=== PATIENT | female | born 1940 | race Caucasian/White ===

== ENCOUNTER 2021-05-14 12:03 | Inpatient (IN) | payer OTHER, MEDICAID ==
[~2021-05-14] VITALS: Ht 154.9 cm; Wt 52.9 kg
[~2021-05-14 12:03] MED LIST: ALPR0.5T10 PO; DIGO0.1262 PO; HYDR-4833 PO; METO25TA5 PO; PAXIL PO; PHEN100C PO; TEMA30CA5 OR
[2021-05-14] MEDS ORDERED: methylPREDNISolone SOD SUCC 125 MG/2 ML VL IV ONE (12:30)
[2021-05-14] MEDS ORDERED: dilTIAZem 25 MG/5 ML VIAL IV ONE (15:00)
[2021-05-14] MEDS ORDERED: NITROGLYCERIN 0.4 MG SL TAB SL PRN (17:30)
[2021-05-14] MEDS ORDERED: MORPHINE SULFATE INJECTION 2 MG/ML SYRG IV PRN (17:30)
[2021-05-14 17:42] LABS: Basophils # (auto) 0 10 ^3/uL (0-0.2); Basophils % (auto) 0.1 % (0.0-2.0); Eosinophils # (auto) 0 10 ^3/uL (0-0.8); Hemoglobin 12.4 g/dL (12.2-16.2); Lymphocytes # (auto) 0.5 10 ^3/uL (0.4-5.4); Lymphocytes % (auto) 6.2 % (10.0-50.0); Mean Corpuscular Hemoglobin 27.4 pg (28.0-32.0); Mean Corpuscular Hgb Conc. 32.5 g/dL (32.0-36.0); Mean Corpuscular Volume 84.1 fL (80.0-100.0); Monocytes # (auto) 0.3 10 ^3/uL (0-1.3); Monocytes % (auto) 3.9 % (0.0-12.0); Neutrophils # (auto) 7.7 10 ^3/uL (1.6-8.6); Neutrophils % (auto) 89.8 % (37.0-80.0); Nucleated Red Blood Cells % 0.1 %; Red Blood Cells 4.52 10^6/uL (4.0-5.20); Red Cell Distribution Width 14.8 % (11.8-14.3); White Blood Cell 8.6 10^3/uL (4.4-10.8)
[2021-05-14 17:59] LABS: Albumin 3.2 g/dL (3.4-5.0); Potassium 3.6 mmol/L (3.5-5.1)
[2021-05-14 18:08] LABS: BUN/Creatinine Ratio 15.2; Bilirubin, Total 0.2 mg/dL (0.2-1.0); CRP High Sensitivity 6.07 mg/dL (< 0.3); Total Protein 6.4 g/dL (6.4-8.2)
[2021-05-14] MEDS ORDERED: AMIODARONE HCL 200 MG TAB PO ONE (18:30)
[2021-05-14] MEDS ORDERED: METOPROLOL TARTRATE 1MG/1ML-5ML VIAL IV ONE (18:30)
[2021-05-14] MEDS ORDERED: ALBUMIN 25% 100 ML IV ONE ×2 (18:30→19:15)
[2021-05-14] MEDS ORDERED: AZITHROMYCIN 500MG/ 250ML 250 ML IV ONE (22:45)
[2021-05-14] MEDS ORDERED: cefTRIAXone 1GM/50ML D5W 50 ML IV ONE (22:45)
[2021-05-14] MEDS: AZITHROMYCIN 500MG/ 250ML 250 ML IV SCH (23:27)
[2021-05-15] MEDS ORDERED: METOPROLOL TARTRATE 1MG/1ML-5ML VIAL IV PRN
[2021-05-15 00:30] VITALS: BP 107/57
[2021-05-15] MEDS: ALBUMIN 25% 100 ML IV SCH ×3 (00:35→13:56)
[2021-05-15 05:00] VITALS: BP 137/77
[2021-05-15] MEDS ORDERED: TEMA30CA PO (05:32)
[2021-05-15] MEDS ORDERED: PHE100C PO (05:32)
[2021-05-15] MEDS ORDERED: PANT40T PO (05:32)
[2021-05-15] MEDS ORDERED: ACET-1158 PO (05:32)
[2021-05-15] MEDS ORDERED: PAR20T PO (05:32)
[2021-05-15 06:00] LABS: Potassium 3.9 mmol/L (3.5-5.1)
[2021-05-15 06:16] LABS: Basophils # (auto) 0 10 ^3/uL (0-0.2); Basophils % (auto) 0.2 % (0.0-2.0); Eosinophils # (auto) 0 10 ^3/uL (0-0.8); Eosinophils % (auto) 0.1 % (0.0-7.0); Hematocrit 33.4 % (36.0-46.0); Hemoglobin 10.8 g/dL (12.2-16.2); Lymphocytes % (auto) 29.2 % (10.0-50.0); Mean Corpuscular Hemoglobin 26.9 pg (28.0-32.0); Mean Corpuscular Hgb Conc. 32.3 g/dL (32.0-36.0); Mean Corpuscular Volume 83.4 fL (80.0-100.0); Monocytes # (auto) 0.8 10 ^3/uL (0-1.3); Monocytes % (auto) 11.3 % (0.0-12.0); Neutrophils % (auto) 59.2 % (37.0-80.0); Nucleated Red Blood Cells % 0.1 %; Red Blood Cells 4.01 10^6/uL (4.0-5.20); Red Cell Distribution Width 14.3 % (11.8-14.3); White Blood Cell 6.8 10^3/uL (4.4-10.8)
[2021-05-15 06:26] LABS: Albumin 3.7 g/dL (3.4-5.0); BUN/Creatinine Ratio 20.3; Bilirubin, Total 0.2 mg/dL (0.2-1.0); Calcium 9.4 mg/dL (8.5-10.1); Magnesium 1.9 mg/dL (1.6-2.6); Phosphorus 2.5 mg/dL (2.5-4.90); Total Protein 6.4 g/dL (6.4-8.2)
[2021-05-15] MEDS: BUDESONIDE (INHALATION) 180 MCG IH IN SCH (07:25)
[2021-05-15] MEDS: cefTRIAXone 1GM/50ML D5W 50 ML IV SCH (08:52)
[2021-05-15 09:00] VITALS: BP 103/54
[2021-05-15] MEDS ORDERED: DIGOXIN 0.125 MG TAB PO ONE (12:00)
[2021-05-15] MEDS ORDERED: LORazepam 2MG/ML-1ML VIAL IV PRN (12:00)
[2021-05-15] MEDS ORDERED: FAMOTIDINE (10MG/ML) 2ML VL IV ONE (12:00)
[2021-05-15] MEDS ORDERED: ALPRAZolam 0.5 MG TAB PO PRN (12:00)
[2021-05-15] MEDS ORDERED: ALUM & MAG HYDROX-SIMETH LIQ(MAALOX) 30 ML PO PRN (12:30)
[2021-05-15] MEDS ORDERED: ACETAMINOPHEN 325 MG TAB PO PRN (12:30)
[2021-05-15] MEDS ORDERED: IPRATROPIUM BROM 0.5 MG/2.5ML INH SOL NEB ONE (12:30)
[2021-05-15] MEDS ORDERED: BUDESONIDE (INHALATION) 0.5 MG/2 ML NEB NEB ONE (12:30)
[2021-05-15] MEDS ORDERED: MORPHINE SULFATE INJECTION 2 MG/ML SYRG IV PRN ×2 (12:30)
[2021-05-15] MEDS ORDERED: PROMETHAZINE-DM 5 ML ORAL SYRUP PO PRN (12:30)
[2021-05-15] MEDS ORDERED: NITROGLYCERIN 0.4 MG SL TAB SL PRN (12:30)
[2021-05-15] MEDS ORDERED: DOCUSATE SOD 100 MG CAP PO PRN (12:30)
[2021-05-15] MEDS ORDERED: METOCLOPRAMIDE HCL 5MG/ml INJ 2ml VIAL IV PRN (12:30)
[2021-05-15 13:00] VITALS: BP 100/76
[2021-05-15 13:03] LABS: Partial Thromboplastin Time 31.8 sec (23.6-33.0)
[2021-05-15] MEDS ORDERED: IPRATROPIUM BROM 0.5 MG/2.5ML INH SOL NEB SCH (13:27)
[2021-05-15] MEDS: APIXABAN 2.5 MG TAB PO SCH ×2 (13:55→21:05)
[2021-05-15] MEDS: methylPREDNISolone SOD SUCC 40 MG/ML VL IV SCH ×2 (13:55→21:04)
[2021-05-15] MEDS ORDERED: ACETYLCYSTEINE 10 %(100MG/ML) SOL 4ML NEB SCH (14:00)
[2021-05-15 17:00] VITALS: BP 141/90
[2021-05-15] MEDS: HYDROcodone-ACET 5/325MG TAB PO PRN (17:31)
[2021-05-15] MEDS: TEMAZEPAM 15 MG CAP PO PRN (21:03)
[2021-05-15] MEDS: PHENYTOIN SODIUM 100 MG CAP PO SCH (21:04)
[2021-05-15] MEDS: ATORVASTATIN 20 MG TAB PO SCH (21:05)
[2021-05-15 22:00] VITALS: BP 93/55
[2021-05-15] MEDS ORDERED: BUDESONIDE (INHALATION) 0.5 MG/2 ML NEB NEB SCH (22:00)
[2021-05-16 05:00] VITALS: BP 135/81
[2021-05-16] MEDS: methylPREDNISolone SOD SUCC 40 MG/ML VL IV SCH ×3 (05:38→21:21)
[2021-05-16 05:51] LABS: Basophils # (auto) 0 10 ^3/uL (0-0.2); Basophils % (auto) 0.1 % (0.0-2.0); Eosinophils # (auto) 0 10 ^3/uL (0-0.8); Hematocrit 40.6 % (36.0-46.0); Hemoglobin 12.9 g/dL (12.2-16.2); Lymphocytes # (auto) 1.1 10 ^3/uL (0.4-5.4); Lymphocytes % (auto) 13.9 % (10.0-50.0); Mean Corpuscular Hgb Conc. 31.9 g/dL (32.0-36.0); Mean Corpuscular Volume 84.5 fL (80.0-100.0); Monocytes # (auto) 0.5 10 ^3/uL (0-1.3); Monocytes % (auto) 6.4 % (0.0-12.0); Neutrophils # (auto) 6.3 10 ^3/uL (1.6-8.6); Neutrophils % (auto) 79.6 % (37.0-80.0); Red Cell Distribution Width 15.1 % (11.8-14.3); White Blood Cell 7.9 10^3/uL (4.4-10.8)
[2021-05-16 06:03] LABS: Potassium 4.2 mmol/L (3.5-5.1)
[2021-05-16 06:29] LABS: Albumin 4.3 g/dL (3.4-5.0); BUN/Creatinine Ratio 21.4; Bilirubin, Total 0.4 mg/dL (0.2-1.0); Calcium 10.4 mg/dL (8.5-10.1); Phosphorus 3.1 mg/dL (2.5-4.90); Total Protein 7.2 g/dL (6.4-8.2)
[2021-05-16 06:30] LABS: Partial Thromboplastin Time 35.5 sec (23.6-33.0)
[2021-05-16 09:00] VITALS: BP 96/50
[2021-05-16] MEDS: BUDESONIDE (INHALATION) 180 MCG IH IN SCH ×3 (10:00→22:00)
[2021-05-16] MEDS: METOPROLOL SUCCINATE XL 50 MG TAB PO SCH (10:00)
[2021-05-16] MEDS: cefTRIAXone 1GM/50ML D5W 50 ML IV SCH (10:33)
[2021-05-16] MEDS: PANTOPRAZOLE 40 MG/10 ML VIAL INJ IV SCH (10:34)
[2021-05-16] MEDS: FAMOTIDINE (10MG/ML) 2ML VL IV SCH (10:34)
[2021-05-16] MEDS: APIXABAN 2.5 MG TAB PO SCH ×2 (10:34→21:21)
[2021-05-16] MEDS: PHENYTOIN SODIUM 100 MG CAP PO SCH ×2 (10:34→21:21)
[2021-05-16] MEDS: DIGOXIN 0.125 MG TAB PO SCH (10:35)
[2021-05-16] MEDS: AZITHROMYCIN 500MG/ 250ML 250 ML IV SCH (11:39)
[2021-05-16 13:00] VITALS: BP 98/60
[2021-05-16 17:00] VITALS: BP 91/60
[2021-05-16] MEDS: FUROSEMIDE 20 MG/2 ML VIAL IV SCH (17:40)
[2021-05-16] MEDS: ALBUTEROL SULF HFA 90MCG INH 200DOSE IN PRN (19:14)
[2021-05-16] MEDS: POTASSIUM CHL 20 Meq TABLET PO SCH (21:22)
[2021-05-16] MEDS: ATORVASTATIN 20 MG TAB PO SCH (21:22)
[2021-05-16] MEDS: TEMAZEPAM 15 MG CAP PO PRN (21:27)
[2021-05-16 22:00] VITALS: BP 102/50
[2021-05-17 05:00] VITALS: BP 91/58
[2021-05-17] MEDS: FUROSEMIDE 20 MG/2 ML VIAL IV SCH (05:21)
[2021-05-17] MEDS: methylPREDNISolone SOD SUCC 40 MG/ML VL IV SCH ×2 (05:22→21:48)
[2021-05-17 05:45] LABS: Basophils # (auto) 0 10 ^3/uL (0-0.2); Basophils % (auto) 0.3 % (0.0-2.0); Eosinophils # (auto) 0 10 ^3/uL (0-0.8); Eosinophils % (auto) 0.1 % (0.0-7.0); Hematocrit 37.4 % (36.0-46.0); Hemoglobin 11.8 g/dL (12.2-16.2); Lymphocytes # (auto) 1.2 10 ^3/uL (0.4-5.4); Lymphocytes % (auto) 14.4 % (10.0-50.0); Mean Corpuscular Hemoglobin 26.6 pg (28.0-32.0); Mean Corpuscular Hgb Conc. 31.6 g/dL (32.0-36.0); Mean Corpuscular Volume 84.2 fL (80.0-100.0); Monocytes # (auto) 0.5 10 ^3/uL (0-1.3); Monocytes % (auto) 6.5 % (0.0-12.0); Neutrophils # (auto) 6.6 10 ^3/uL (1.6-8.6); Neutrophils % (auto) 78.7 % (37.0-80.0); Nucleated Red Blood Cells % 0.1 %; Red Blood Cells 4.44 10^6/uL (4.0-5.20); Red Cell Distribution Width 14.5 % (11.8-14.3); White Blood Cell 8.4 10^3/uL (4.4-10.8)
[2021-05-17 06:04] LABS: Alanine Aminotransferase 36 U/L (13-56); Albumin 3.2 g/dL (3.4-5.0); Anion Gap 4 (5-15); Aspartate Aminotransferase 40 U/L (15-37); BUN/Creatinine Ratio 29.9; Blood Urea Nitrogen 20 mg/dL (7-18); Calcium 10.4 mg/dL (8.5-10.1); Carbon Dioxide 28 mmol/L (21-32); Chloride 109 mmol/L (98-107); GFR African American 109 mL/min; GFR Non-African American 90 mL/min; Glucose 126 mg/dL (74-106); Magnesium 2.3 mg/dL (1.6-2.6); Potassium 4.7 mmol/L (3.5-5.1); Sodium 141 mmol/L (136-145)
[2021-05-17 06:06] LABS: Alkaline Phosphatase 57 U/L (45-117); Bilirubin, Total 0.3 mg/dL (0.2-1.0); Phosphorus 2.1 mg/dL (2.5-4.90); Total Protein 6.2 g/dL (6.4-8.2)
[2021-05-17] MEDS: cefTRIAXone 1GM/50ML D5W 50 ML IV SCH (08:45)
[2021-05-17] MEDS: PANTOPRAZOLE 40 MG/10 ML VIAL INJ IV SCH (08:46)
[2021-05-17] MEDS: FAMOTIDINE (10MG/ML) 2ML VL IV SCH (08:46)
[2021-05-17] MEDS: AZITHROMYCIN 500MG/ 250ML 250 ML IV SCH (08:47)
[2021-05-17] MEDS: PHENYTOIN SODIUM 100 MG CAP PO SCH ×2 (08:47→21:49)
[2021-05-17] MEDS: APIXABAN 2.5 MG TAB PO SCH ×2 (08:48→21:49)
[2021-05-17] MEDS: POTASSIUM CHL 20 Meq TABLET PO SCH (08:48)
[2021-05-17 09:00] VITALS: BP 102/65
[2021-05-17] MEDS: DIGOXIN 0.125 MG TAB PO SCH (09:31)
[2021-05-17] MEDS: METOPROLOL SUCCINATE XL 50 MG TAB PO SCH (09:32)
[2021-05-17] MEDS: BUDESONIDE (INHALATION) 180 MCG IH IN SCH ×2 (10:15→17:48)
[2021-05-17] MEDS: ALBUTEROL SULF HFA 90MCG INH 200DOSE IN PRN ×2 (10:15→17:48)
[2021-05-17 12:30] LABS: INR 1.01 (0.9-1.15); Partial Thromboplastin Time 30.6 sec (23.6-33.0)
[2021-05-17 13:00] VITALS: BP 133/79
[2021-05-17] MEDS ORDERED: ZINC SULFATE 220mg CAP or TAB PO ONE (13:25)
[2021-05-17] MEDS ORDERED: CHOLECALCIFEROL (VITD3) 2,000 UNIT CAP/TAB PO ONE (13:25)
[2021-05-17] MEDS ORDERED: ASCORBIC ACID 1,000 MG TAB PO ONE (13:25)
[2021-05-17] MEDS ORDERED: IVERMECTIN 3 MG TAB PO ONE (13:25)
[2021-05-17] MEDS: HYDROcodone-ACET 5/325MG TAB PO PRN ×2 (13:52→17:33)
[2021-05-17 17:00] VITALS: BP 107/58
[2021-05-17] MEDS: ATORVASTATIN 20 MG TAB PO SCH (21:49)
[2021-05-17 22:00] VITALS: BP 102/65
[2021-05-17] MEDS: TEMAZEPAM 15 MG CAP PO PRN (23:25)
[2021-05-18 05:00] VITALS: BP 112/75
[2021-05-18] MEDS: BUDESONIDE (INHALATION) 180 MCG IH IN SCH ×2 (06:09→20:28)
[2021-05-18] MEDS: ALBUTEROL SULF HFA 90MCG INH 200DOSE IN PRN ×2 (06:09→20:28)
[2021-05-18 06:48] LABS: Albumin 3.4 g/dL (3.4-5.0); Anion Gap 5 (5-15); Blood Urea Nitrogen 22 mg/dL (7-18); Carbon Dioxide 25 mmol/L (21-32); Chloride 110 mmol/L (98-107); Glucose 123 mg/dL (74-106); Magnesium 2.1 mg/dL (1.6-2.6); Potassium 4.9 mmol/L (3.5-5.1); Sodium 140 mmol/L (136-145)
[2021-05-18 06:51] LABS: Alanine Aminotransferase 57 U/L (13-56); Alkaline Phosphatase 63 U/L (45-117); Aspartate Aminotransferase 48 U/L (15-37); Bilirubin, Direct < 0.1 mg/dL (0-0.2); Bilirubin, Total 0.2 mg/dL (0.2-1.0); Calcium 10.1 mg/dL (8.5-10.1); Cholesterol 156 mg/dL (< 200); GFR African American 121 mL/min; GFR Non-African American 100 mL/min; HDL Cholesterol 64 mg/dL (40-59); LDL Cholesterol 63 mg/dL (< 100); Phosphorus 2.8 mg/dL (2.5-4.90); Triglycerides 78 mg/dL (< 150)
[2021-05-18 07:14] LABS: Thyroid Stimulating Hormone 0.38 uIU/mL (0.358-3.74)
[2021-05-18 08:39] LABS: CRP High Sensitivity 3.19 mg/dL (< 0.3)
[2021-05-18 08:56] LABS: BUN/Creatinine Ratio 36.1
[2021-05-18 09:00] VITALS: BP 93/57
[2021-05-18] MEDS: PANTOPRAZOLE 40 MG/10 ML VIAL INJ IV SCH (10:35)
[2021-05-18] MEDS: cefTRIAXone 1GM/50ML D5W 50 ML IV SCH (10:35)
[2021-05-18] MEDS: APIXABAN 2.5 MG TAB PO SCH ×2 (10:36→22:34)
[2021-05-18] MEDS: PHENYTOIN SODIUM 100 MG CAP PO SCH ×2 (10:36→22:34)
[2021-05-18] MEDS: ZINC SULFATE 220mg CAP or TAB PO SCH (10:36)
[2021-05-18] MEDS: methylPREDNISolone SOD SUCC 40 MG/ML VL IV SCH (10:36)
[2021-05-18] MEDS: ASCORBIC ACID 1,000 MG TAB PO SCH (10:37)
[2021-05-18] MEDS: CHOLECALCIFEROL (VITD3) 2,000 UNIT CAP/TAB PO SCH (10:37)
[2021-05-18] MEDS: IVERMECTIN 3 MG TAB PO SCH (10:37)
[2021-05-18] MEDS: AZITHROMYCIN 250 MG TAB PO SCH (10:38)
[2021-05-18] MEDS: METOPROLOL SUCCINATE XL 50 MG TAB PO SCH (10:40)
[2021-05-18] MEDS: DIGOXIN 0.125 MG TAB PO SCH (10:40)
[2021-05-18 13:00] VITALS: BP 101/64
[2021-05-18] MEDS ORDERED: DEXTROSE (50%) 50ML SYRG IV PRN (13:00)
[2021-05-18] MEDS ORDERED: REMDESIVIR PER PHARMACY 0 ML IV SCH (13:00)
[2021-05-18] MEDS ORDERED: REMDESIVIR 200 MG in NS 210ml LOADING DOSE ADULT IV ONE (15:00)
[2021-05-18] MEDS: InsuLIN REG 1unit/0.01ml Soln (100units/ml) SC SCH (18:00)
[2021-05-18] MEDS: ACCU-CHEK COMFORT CURVE STRIP VI SCH (18:12)
[2021-05-18 22:00] VITALS: BP 95/56
[2021-05-19] MEDS: TEMAZEPAM 15 MG CAP PO PRN ×2 (00:16→21:41)
[2021-05-19] MEDS: HYDROcodone-ACET 5/325MG TAB PO PRN (00:17)
[2021-05-19] MEDS: ACCU-CHEK COMFORT CURVE STRIP VI SCH ×4 (00:18→17:45)
[2021-05-19 05:14] VITALS: BP 92/52
[2021-05-19] MEDS: InsuLIN REG 1unit/0.01ml Soln (100units/ml) SC SCH ×4 (06:00→17:45)
[2021-05-19 07:48] LABS: Albumin 3.1 g/dL (3.4-5.0); Anion Gap 4 (5-15); Blood Urea Nitrogen 24 mg/dL (7-18); Carbon Dioxide 27 mmol/L (21-32); Chloride 109 mmol/L (98-107); Glucose 90 mg/dL (74-106); Potassium 4.2 mmol/L (3.5-5.1); Sodium 140 mmol/L (136-145)
[2021-05-19 07:52] LABS: Alanine Aminotransferase 74 U/L (13-56); Alkaline Phosphatase 65 U/L (45-117); Aspartate Aminotransferase 49 U/L (15-37); BUN/Creatinine Ratio 43.6; Bilirubin, Total < 0.1 mg/dL (0.2-1.0); GFR African American 136 mL/min; GFR Non-African American 113 mL/min; Total Protein 5.8 g/dL (6.4-8.2)
[2021-05-19 09:00] VITALS: BP 116/75
[2021-05-19] MEDS: PANTOPRAZOLE 40 MG/10 ML VIAL INJ IV SCH (09:37)
[2021-05-19] MEDS: cefTRIAXone 1GM/50ML D5W 50 ML IV SCH (09:37)
[2021-05-19] MEDS: DexAMETHasone SOD PHOS 10MG/1ML VIAL INJ IV SCH (09:37)
[2021-05-19] MEDS: ZINC SULFATE 220mg CAP or TAB PO SCH (09:37)
[2021-05-19] MEDS: APIXABAN 2.5 MG TAB PO SCH ×2 (09:38→21:41)
[2021-05-19] MEDS: IVERMECTIN 3 MG TAB PO SCH (09:38)
[2021-05-19] MEDS: DIGOXIN 0.125 MG TAB PO SCH (09:38)
[2021-05-19] MEDS: PHENYTOIN SODIUM 100 MG CAP PO SCH ×2 (09:38→21:40)
[2021-05-19] MEDS: METOPROLOL SUCCINATE XL 50 MG TAB PO SCH (09:39)
[2021-05-19] MEDS: ASCORBIC ACID 1,000 MG TAB PO SCH (09:39)
[2021-05-19] MEDS: CHOLECALCIFEROL (VITD3) 2,000 UNIT CAP/TAB PO SCH (09:39)
[2021-05-19] MEDS: AZITHROMYCIN 250 MG TAB PO SCH (09:39)
[2021-05-19] MEDS: ALBUTEROL SULF HFA 90MCG INH 200DOSE IN PRN ×2 (10:31→21:31)
[2021-05-19] MEDS: BUDESONIDE (INHALATION) 180 MCG IH IN SCH ×2 (10:31→21:31)
[2021-05-19 13:18] VITALS: BP 95/63
[2021-05-19] MEDS: REMDESIVIR 100mg 100 MG in SODIUM CHL 0.9% 230 ML IV SCH (15:00)
[2021-05-19 17:18] VITALS: BP 92/63
[2021-05-19 22:00] VITALS: BP 115/76
[2021-05-20 05:00] VITALS: BP 111/66
[2021-05-20] MEDS: ACCU-CHEK COMFORT CURVE STRIP VI SCH ×5 (06:00→23:56)
[2021-05-20] MEDS: InsuLIN REG 1unit/0.01ml Soln (100units/ml) SC SCH ×5 (06:00→23:56)
[2021-05-20 07:39] LABS: Chloride 111 mmol/L (98-107); Potassium 4.1 mmol/L (3.5-5.1); Sodium 141 mmol/L (136-145)
[2021-05-20 07:48] LABS: Alanine Aminotransferase 49 U/L (13-56); Albumin 2.9 g/dL (3.4-5.0); Alkaline Phosphatase 62 U/L (45-117); Anion Gap 4 (5-15); Aspartate Aminotransferase 25 U/L (15-37); BUN/Creatinine Ratio 47.6; Bilirubin, Direct < 0.1 mg/dL (0-0.2); Bilirubin, Total 0.2 mg/dL (0.2-1.0); Blood Urea Nitrogen 20 mg/dL (7-18); Calcium 9.8 mg/dL (8.5-10.1); Carbon Dioxide 26 mmol/L (21-32); GFR African American 186 mL/min; GFR Non-African American 154 mL/min; Glucose 90 mg/dL (74-106); Magnesium 2.4 mg/dL (1.6-2.6); Total Protein 5.5 g/dL (6.4-8.2)
[2021-05-20 08:25] VITALS: BP 92/62
[2021-05-20] MEDS: BUDESONIDE (INHALATION) 180 MCG IH IN SCH ×2 (10:00→19:51)
[2021-05-20] MEDS: cefTRIAXone 1GM/50ML D5W 50 ML IV SCH (10:10)
[2021-05-20] MEDS: ZINC SULFATE 220mg CAP or TAB PO SCH (10:12)
[2021-05-20] MEDS: PANTOPRAZOLE 40 MG/10 ML VIAL INJ IV SCH (10:12)
[2021-05-20] MEDS: DexAMETHasone SOD PHOS 10MG/1ML VIAL INJ IV SCH (10:12)
[2021-05-20] MEDS: PHENYTOIN SODIUM 100 MG CAP PO SCH ×2 (10:13→22:32)
[2021-05-20] MEDS: APIXABAN 2.5 MG TAB PO SCH ×2 (10:14→22:32)
[2021-05-20] MEDS: IVERMECTIN 3 MG TAB PO SCH (10:15)
[2021-05-20] MEDS: DIGOXIN 0.125 MG TAB PO SCH (10:15)
[2021-05-20] MEDS: CHOLECALCIFEROL (VITD3) 2,000 UNIT CAP/TAB PO SCH (10:16)
[2021-05-20] MEDS: ASCORBIC ACID 1,000 MG TAB PO SCH (10:16)
[2021-05-20] MEDS: AZITHROMYCIN 250 MG TAB PO SCH (10:16)
[2021-05-20] MEDS: METOPROLOL SUCCINATE XL 50 MG TAB PO SCH (11:22)
[2021-05-20 12:47] VITALS: BP 143/74
[2021-05-20] MEDS: ALBUTEROL SULF HFA 90MCG INH 200DOSE IN PRN (14:24)
[2021-05-20] MEDS: REMDESIVIR 100mg 100 MG in SODIUM CHL 0.9% 230 ML IV SCH (15:17)
[2021-05-20] MEDS ORDERED: ZINC220T6 PO (16:16)
[2021-05-20] MEDS ORDERED: DEX4T PO (16:16)
[2021-05-20] MEDS ORDERED: ALBUAER3 IN (16:16)
[2021-05-20] MEDS ORDERED: DOXY-286 PO (16:16)
[2021-05-20] MEDS ORDERED: ASCO10003 PO (16:16)
[2021-05-20] MEDS ORDERED: CHOL20007 PO (16:16)
[2021-05-20 17:15] VITALS: BP 142/65
[2021-05-20 22:00] VITALS: BP 83/55
[2021-05-20] MEDS: TEMAZEPAM 15 MG CAP PO PRN (22:33)
[2021-05-20 22:45] VITALS: BP 111/62
[2021-05-21 05:00] VITALS: BP 92/64
[2021-05-21] MEDS: InsuLIN REG 1unit/0.01ml Soln (100units/ml) SC SCH ×4 (06:00→22:44)
[2021-05-21] MEDS: ACCU-CHEK COMFORT CURVE STRIP VI SCH ×4 (06:52→22:43)
[2021-05-21] MEDS: ALBUTEROL SULF HFA 90MCG INH 200DOSE IN PRN ×2 (08:40→20:03)
[2021-05-21] MEDS: BUDESONIDE (INHALATION) 180 MCG IH IN SCH ×2 (08:40→20:03)
[2021-05-21 09:00] VITALS: BP 161/72
[2021-05-21] MEDS: cefTRIAXone 1GM/50ML D5W 50 ML IV SCH (11:04)
[2021-05-21] MEDS: IVERMECTIN 3 MG TAB PO SCH (11:04)
[2021-05-21] MEDS: PANTOPRAZOLE 40 MG/10 ML VIAL INJ IV SCH (11:04)
[2021-05-21] MEDS: CHOLECALCIFEROL (VITD3) 2,000 UNIT CAP/TAB PO SCH (11:05)
[2021-05-21] MEDS: PHENYTOIN SODIUM 100 MG CAP PO SCH ×2 (11:06→22:32)
[2021-05-21] MEDS: ZINC SULFATE 220mg CAP or TAB PO SCH (11:06)
[2021-05-21] MEDS: DexAMETHasone SOD PHOS 10MG/1ML VIAL INJ IV SCH (11:07)
[2021-05-21] MEDS: APIXABAN 2.5 MG TAB PO SCH ×2 (11:07→22:32)
[2021-05-21] MEDS: DIGOXIN 0.125 MG TAB PO SCH (11:07)
[2021-05-21] MEDS: ASCORBIC ACID 1,000 MG TAB PO SCH (11:07)
[2021-05-21] MEDS: METOPROLOL SUCCINATE XL 50 MG TAB PO SCH (11:14)
[2021-05-21 13:00] VITALS: BP 146/71
[2021-05-21] MEDS: REMDESIVIR 100mg 100 MG in SODIUM CHL 0.9% 230 ML IV SCH (16:06)
[2021-05-21 17:00] VITALS: BP 96/48
[2021-05-21 20:00] VITALS: BP 99/67
[2021-05-21 22:00] VITALS: BP 99/67
[2021-05-21] MEDS: TEMAZEPAM 15 MG CAP PO PRN (22:43)
[2021-05-22 05:00] VITALS: BP 122/76
[2021-05-22] MEDS: InsuLIN REG 1unit/0.01ml Soln (100units/ml) SC SCH ×3 (06:00→18:00)
[2021-05-22] MEDS: ALBUTEROL SULF HFA 90MCG INH 200DOSE IN PRN ×2 (06:11→19:38)
[2021-05-22] MEDS: BUDESONIDE (INHALATION) 180 MCG IH IN SCH ×2 (06:11→19:38)
[2021-05-22] MEDS: ACCU-CHEK COMFORT CURVE STRIP VI SCH ×3 (06:14→18:06)
[2021-05-22 07:57] VITALS: BP 131/90
[2021-05-22] MEDS: cefTRIAXone 1GM/50ML D5W 50 ML IV SCH (09:44)
[2021-05-22] MEDS: ASCORBIC ACID 1,000 MG TAB PO SCH (09:47)
[2021-05-22] MEDS: METOPROLOL SUCCINATE XL 50 MG TAB PO SCH (09:47)
[2021-05-22] MEDS: ZINC SULFATE 220mg CAP or TAB PO SCH (09:47)
[2021-05-22] MEDS: CHOLECALCIFEROL (VITD3) 2,000 UNIT CAP/TAB PO SCH (09:47)
[2021-05-22] MEDS: DIGOXIN 0.125 MG TAB PO SCH (09:47)
[2021-05-22] MEDS: IVERMECTIN 3 MG TAB PO SCH (09:48)
[2021-05-22] MEDS: DexAMETHasone SOD PHOS 10MG/1ML VIAL INJ IV SCH (09:48)
[2021-05-22] MEDS: APIXABAN 2.5 MG TAB PO SCH ×2 (09:48→22:48)
[2021-05-22] MEDS: PHENYTOIN SODIUM 100 MG CAP PO SCH ×2 (09:48→22:47)
[2021-05-22] MEDS: PANTOPRAZOLE 40 MG/10 ML VIAL INJ IV SCH (09:48)
[2021-05-22 12:00] VITALS: BP 97/67
[2021-05-22] MEDS: REMDESIVIR 100mg 100 MG in SODIUM CHL 0.9% 230 ML IV SCH (15:32)
[2021-05-22 16:34] VITALS: BP 83/40
[2021-05-22 18:00] VITALS: BP 132/82
[2021-05-22 22:00] VITALS: BP 90/47
[2021-05-22] MEDS: TEMAZEPAM 15 MG CAP PO PRN (23:01)
[2021-05-23] MEDS: ACCU-CHEK COMFORT CURVE STRIP VI SCH ×5 (01:03→23:44)
[2021-05-23 05:00] VITALS: BP 103/64
[2021-05-23] MEDS: BUDESONIDE (INHALATION) 180 MCG IH IN SCH ×2 (05:45→19:15)
[2021-05-23] MEDS: ALBUTEROL SULF HFA 90MCG INH 200DOSE IN PRN ×2 (05:45→19:14)
[2021-05-23] MEDS: InsuLIN REG 1unit/0.01ml Soln (100units/ml) SC SCH ×5 (06:00→23:44)
[2021-05-23 09:09] VITALS: BP 124/60
[2021-05-23] MEDS: PANTOPRAZOLE 40 MG/10 ML VIAL INJ IV SCH (09:50)
[2021-05-23] MEDS: cefTRIAXone 1GM/50ML D5W 50 ML IV SCH (09:50)
[2021-05-23] MEDS: ASCORBIC ACID 1,000 MG TAB PO SCH (09:51)
[2021-05-23] MEDS: CHOLECALCIFEROL (VITD3) 2,000 UNIT CAP/TAB PO SCH (09:51)
[2021-05-23] MEDS: PHENYTOIN SODIUM 100 MG CAP PO SCH ×2 (09:51→21:10)
[2021-05-23] MEDS: ZINC SULFATE 220mg CAP or TAB PO SCH (09:51)
[2021-05-23] MEDS: APIXABAN 2.5 MG TAB PO SCH ×2 (09:51→21:10)
[2021-05-23] MEDS: METOPROLOL SUCCINATE XL 50 MG TAB PO SCH (09:53)
[2021-05-23] MEDS: DIGOXIN 0.125 MG TAB PO SCH (09:53)
[2021-05-23] MEDS ORDERED: DexAMETHasone SOD PHOS 10MG/1ML VIAL INJ IV SCH (10:00)
[2021-05-23 13:00] VITALS: BP 98/57
[2021-05-23 17:00] VITALS: BP 91/48
[2021-05-23] MEDS: TEMAZEPAM 15 MG CAP PO PRN (21:10)
[2021-05-23 22:00] VITALS: BP 142/79
[2021-05-24 05:00] VITALS: BP 110/71
[2021-05-24 08:00] VITALS: BP 116/65
[2021-05-24] MEDS: ALBUTEROL SULF HFA 90MCG INH 200DOSE IN PRN (08:36)
[2021-05-24] MEDS: BUDESONIDE (INHALATION) 180 MCG IH IN SCH (08:36)
[2021-05-24 09:00] VITALS: BP 116/65
[2021-05-24] MEDS: ZINC SULFATE 220mg CAP or TAB PO SCH (09:33)
[2021-05-24] MEDS: APIXABAN 2.5 MG TAB PO SCH (09:33)
[2021-05-24] MEDS: PHENYTOIN SODIUM 100 MG CAP PO SCH (09:33)
[2021-05-24] MEDS: DIGOXIN 0.125 MG TAB PO SCH (09:34)
[2021-05-24] MEDS: HYDROcodone-ACET 5/325MG TAB PO PRN (09:35)
[2021-05-24] MEDS: ASCORBIC ACID 1,000 MG TAB PO SCH (09:35)
[2021-05-24] MEDS: CHOLECALCIFEROL (VITD3) 2,000 UNIT CAP/TAB PO SCH (09:35)
[2021-05-24] MEDS ORDERED: DexAMETHasone SOD PHOS 10MG/1ML VIAL INJ IV SCH (10:00)
[2021-05-24] MEDS ORDERED: METOPROLOL TARTRATE 25 MG TAB PO SCH (10:00)
[2021-05-24] MEDS ORDERED: PANTOPRAZOLE 40 MG TAB PO SCH (10:00)
[2021-05-24 13:00] VITALS: BP 79/45
[2021-05-24] MEDS ORDERED: DEX4T PO (15:18)
[2021-05-24 17:00] VITALS: BP 101/54
[2021-05-24 18:06] VITALS: BP 116/65
== END 2021-05-24 19:21 | disposition home or self-care (01) | DRG 177 ==
LOC: EDBD 12:03 → ER 12:22 → TELE 17:17 → TELE-E-ADS 22:40 → TELE-EAST 05-18 16:46
PROVIDERS: ADMIT Hospitalist; ATTEND Internal Medicine
PROC: 05H933Z Insertion of Infusion Device into Right Brachial Vein, Percutaneous Approach (ICD-10-PCS; 2021-05-15)
PROC: B54MZZA Ultrasonography of Right Upper Extremity Veins, Guidance (ICD-10-PCS; 2021-05-15)
PROC: XW033E5 Introduction of Remdesivir Anti-infective into Peripheral Vein, Percutaneous Approach, New Technology Group 5 (ICD-10-PCS; 2021-05-18)
PROC: 05HC33Z Insertion of Infusion Device into Left Basilic Vein, Percutaneous Approach (ICD-10-PCS; principal; 2021-05-24)
PROC: B54NZZA Ultrasonography of Left Upper Extremity Veins, Guidance (ICD-10-PCS; 2021-05-24)
DX: U07.1 COVID-19 (principal); I50.33 Acute on chronic diastolic (congestive) heart failure; J12.82 Pneumonia due to coronavirus disease 2019; J96.00 Acute respiratory failure, unspecified whether with hypoxia or hypercapnia; I48.20 Chronic atrial fibrillation, unspecified; J44.0 Chronic obstructive pulmonary disease with (acute) lower respiratory infection; J44.1 Chronic obstructive pulmonary disease with (acute) exacerbation; E78.5 Hyperlipidemia, unspecified; G40.909 Epilepsy, unspecified, not intractable, without status epilepticus; K21.9 Gastro-esophageal reflux disease without esophagitis; K44.9 Diaphragmatic hernia without obstruction or gangrene; D63.8 Anemia in other chronic diseases classified elsewhere; K29.70 Gastritis, unspecified, without bleeding; F41.9 Anxiety disorder, unspecified; I95.9 Hypotension, unspecified; I11.0 Hypertensive heart disease with heart failure; R53.81 Other malaise; R73.9 Hyperglycemia, unspecified; Z79.899 Other long term (current) drug therapy; Z90.49 Acquired absence of other specified parts of digestive tract; Z90.710 Acquired absence of both cervix and uterus; Z86.73 Personal history of transient ischemic attack (TIA), and cerebral infarction without residual deficits
CPT/HCPCS: 36415; 36600; 71045; 71250; 80053; 80061; 80076; 80162; 80185; 82248; 82306; 82728; 82805; 82962; 83036; 83605; 83615; 83735; 83880; 84100; 84443; 84484; 85025; 85379; 85610; 85730; 86141; 87040; 87426; 93005; 93306; 94640; 96365; 96375; 97110; 97116; 97163; 97530; C9113; G0378; J0696; J1100; J1815; J3490; P9047

== ENCOUNTER 2022-01-13 14:19 | Inpatient (IN) | payer MEDICARE, MEDICAID ==
[~2022-01-13] VITALS: Ht 157.5 cm; Wt 57.4 kg
[~2022-01-13 14:19] MED LIST changes: +ACET-1158 PO; +ALBUAER3 IN; +ASCO10003 PO; +DEX4T PO; +PANT40T PO; +PAR20T PO; +PHE100C PO; +TEMA30CA PO; +ZINC220T6 PO
[2022-01-13] MEDS ORDERED: SODIUM CHLORIDE 0.9% 1,000 ML IVB ONE (14:30)
[2022-01-13 15:30] LABS: Albumin 2.7 g/dL (3.4-5.0); Calcium 9.9 mg/dL (8.5-10.1); Potassium 3.7 mmol/L (3.5-5.1)
[2022-01-13 15:33] LABS: BUN/Creatinine Ratio 16.5; Bilirubin, Total 0.9 mg/dL (0.2-1.0); Total Protein 5.6 g/dL (6.4-8.2)
[2022-01-13 16:27] LABS: Basophils # (auto) 0 10 ^3/uL (0-0.2); Basophils % (auto) 0.1 % (0.0-2.0); Eosinophils # (auto) 0 10 ^3/uL (0-0.8); Mean Corpuscular Volume 83.7 fL (80.0-100.0)
[2022-01-13] MEDS ORDERED: DIGOXIN (250MCG/ML) 2 ML AMPULE IV ONE ×2 (16:30→19:00)
[2022-01-13 16:31] LABS: Hematocrit 37.2 % (36.0-46.0); Hemoglobin 11.8 g/dL (12.2-16.2); Lymphocytes # (auto) 0.6 10 ^3/uL (0.4-5.4); Mean Corpuscular Hemoglobin 26.5 pg (28.0-32.0); Mean Corpuscular Hgb Conc. 31.6 g/dL (32.0-36.0); Monocytes # (auto) 1.8 10 ^3/uL (0-1.3); Monocytes % (auto) 11.9 % (0.0-12.0); Neutrophils # (auto) 12.8 10 ^3/uL (1.6-8.6); Nucleated Red Blood Cells % 0.1 %; Red Blood Cells 4.45 10^6/uL (4.0-5.20); Red Cell Distribution Width 14.4 % (11.8-14.3); White Blood Cell 15.3 10^3/uL (4.4-10.8)
[2022-01-13 17:13] LABS: Urine Bacteria NONE SEEN /hpf (None Seen); Urine Blood 2+ /uL (Negative); Urine WBC 2107 /hpf (0 - 5); Urine WBC Clumps PRESENT /hpf (None Seen)
[2022-01-13 17:29] LABS: Urine Specific Gravity 1.015 (1.001-1.035)
[2022-01-13] MEDS ORDERED: cefTRIAXone 1GM/50ML D5W 50 ML IV ONE (18:45)
[2022-01-13] MEDS ORDERED: METOPROLOL TARTRATE 50 MG TAB PO ONE (19:30)
[2022-01-13] MEDS ORDERED: ALBUTEROL SULF 2.5 MG/0.5ML(0.5%) NEB SOLN NEB PRN (19:30)
[2022-01-13 19:44] VITALS: BP 104/65
[2022-01-13] MEDS: ACETAMINOPHEN 325 MG TAB PO PRN (20:58)
[2022-01-13] MEDS ORDERED: PHENYTOIN SODIUM 100 MG CAP PO SCH (22:00)
[2022-01-13] MEDS: PHENYTOIN SODIUM 100 MG CAP PO SCH (22:16)
[2022-01-13 22:32] LABS: INR 1.03 (0.9-1.15)
[2022-01-14] VITALS (10 sets, daily range): BP systolic 98–130; BP diastolic 56–85
[2022-01-14] MEDS ORDERED: MIDO5TAB3 PO (02:39)
[2022-01-14] MEDS ORDERED: ASPI1TAB20 PO (02:39)
[2022-01-14 05:51] LABS: Eosinophils # (auto) 0 10 ^3/uL (0-0.8); Lymphocytes # (auto) 0.9 10 ^3/uL (0.4-5.4); Monocytes # (auto) 1.6 10 ^3/uL (0-1.3)
[2022-01-14 05:55] LABS: Basophils # (auto) 0.1 10 ^3/uL (0-0.2); Basophils % (auto) 0.4 % (0.0-2.0); Eosinophils % (auto) 0.1 % (0.0-7.0); Hematocrit 37.5 % (36.0-46.0); Lymphocytes % (auto) 5.7 % (10.0-50.0); Mean Corpuscular Hemoglobin 26.8 pg (28.0-32.0); Mean Corpuscular Volume 83.9 fL (80.0-100.0); Monocytes % (auto) 10.1 % (0.0-12.0); Neutrophils # (auto) 13.3 10 ^3/uL (1.6-8.6); Neutrophils % (auto) 83.7 % (37.0-80.0); Red Blood Cells 4.47 10^6/uL (4.0-5.20); Red Cell Distribution Width 14.4 % (11.8-14.3); White Blood Cell 15.9 10^3/uL (4.4-10.8)
[2022-01-14 06:09] LABS: Albumin 2.5 g/dL (3.4-5.0); Calcium 10.2 mg/dL (8.5-10.1)
[2022-01-14 06:14] LABS: Bilirubin, Total 0.6 mg/dL (0.2-1.0)
[2022-01-14] MEDS: METOPROLOL TARTRATE 25 MG TAB PO SCH (10:00)
[2022-01-14] MEDS: cefTRIAXone 1GM/50ML D5W 50 ML IV SCH ×2 (10:34→10:35)
[2022-01-14] MEDS: PHENYTOIN SODIUM 100 MG CAP PO SCH ×2 (10:35→21:24)
[2022-01-14] MEDS: ENOXAPARIN SOD 40 MG/0.4 ML SYRINGE SC SCH (10:35)
[2022-01-14] MEDS: DIGOXIN 0.125 MG TAB PO SCH (10:36)
[2022-01-14] MEDS: SODIUM CHLORIDE 0.9% 1,000 ML IV SCH (15:00)
[2022-01-14] MEDS: MIDODRINE HCL 10 MG TAB PO SCH (17:57)
[2022-01-14] MEDS ORDERED: METOPROLOL TARTRATE 25 MG TAB PO ONE (18:30)
[2022-01-15] MEDS: SODIUM CHLORIDE 0.9% 1,000 ML IV SCH ×2 (03:05→10:51)
[2022-01-15 05:00] VITALS: BP 121/58
[2022-01-15 05:20] LABS: Basophils # (auto) 0 10 ^3/uL (0-0.2); Basophils % (auto) 0.1 % (0.0-2.0); Hemoglobin 11.1 g/dL (12.2-16.2); Red Cell Distribution Width 14.2 % (11.8-14.3)
[2022-01-15 05:22] LABS: Eosinophils # (auto) 0.1 10 ^3/uL (0-0.8); Eosinophils % (auto) 0.4 % (0.0-7.0); Hematocrit 34.6 % (36.0-46.0); Lymphocytes # (auto) 1.1 10 ^3/uL (0.4-5.4); Lymphocytes % (auto) 6.5 % (10.0-50.0); Mean Corpuscular Hemoglobin 26.7 pg (28.0-32.0); Mean Corpuscular Hgb Conc. 32.1 g/dL (32.0-36.0); Monocytes # (auto) 2.1 10 ^3/uL (0-1.3); Monocytes % (auto) 12.6 % (0.0-12.0); Neutrophils # (auto) 13.1 10 ^3/uL (1.6-8.6); Neutrophils % (auto) 80.4 % (37.0-80.0); Red Blood Cells 4.17 10^6/uL (4.0-5.20); White Blood Cell 16.3 10^3/uL (4.4-10.8)
[2022-01-15 05:45] LABS: Potassium 3.9 mmol/L (3.5-5.1)
[2022-01-15 05:50] LABS: BUN/Creatinine Ratio 24.7; Calcium 9.8 mg/dL (8.5-10.1)
[2022-01-15] MEDS: MIDODRINE HCL 10 MG TAB PO SCH ×3 (06:10→18:35)
[2022-01-15 09:24] VITALS: BP 108/62
[2022-01-15] MEDS: cefTRIAXone 1GM/50ML D5W 50 ML IV SCH (10:48)
[2022-01-15] MEDS: ENOXAPARIN SOD 40 MG/0.4 ML SYRINGE SC SCH (10:48)
[2022-01-15] MEDS: DIGOXIN 0.125 MG TAB PO SCH (10:49)
[2022-01-15] MEDS: PHENYTOIN SODIUM 100 MG CAP PO SCH ×2 (10:49→22:07)
[2022-01-15] MEDS: METOPROLOL TARTRATE 25 MG TAB PO SCH ×2 (10:50→22:16)
[2022-01-15 12:54] VITALS: BP 99/54
[2022-01-15] MEDS: PIPERACILLIN-TAZOB 3.375GM 100 ML IV SCH ×2 (13:33→22:07)
[2022-01-15 16:09] VITALS: BP 99/78
[2022-01-15 20:10] VITALS: BP 111/60
[2022-01-15 21:41] VITALS: BP 111/51
[2022-01-16 04:23] VITALS: BP 88/57
[2022-01-16] MEDS: SODIUM CHLORIDE 0.9% 1,000 ML IV SCH (05:45)
[2022-01-16 05:58] LABS: Basophils # (auto) 0 10 ^3/uL (0-0.2); Basophils % (auto) 0.1 % (0.0-2.0); Eosinophils # (auto) 0.1 10 ^3/uL (0-0.8); Eosinophils % (auto) 1.1 % (0.0-7.0); Hematocrit 35.8 % (36.0-46.0); Hemoglobin 11.8 g/dL (12.2-16.2); Lymphocytes # (auto) 1.3 10 ^3/uL (0.4-5.4); Lymphocytes % (auto) 12.4 % (10.0-50.0); Mean Corpuscular Hemoglobin 27.3 pg (28.0-32.0); Mean Corpuscular Hgb Conc. 32.9 g/dL (32.0-36.0); Monocytes # (auto) 1.8 10 ^3/uL (0-1.3); Monocytes % (auto) 16.8 % (0.0-12.0); Neutrophils # (auto) 7.4 10 ^3/uL (1.6-8.6); Neutrophils % (auto) 69.6 % (37.0-80.0); Red Blood Cells 4.32 10^6/uL (4.0-5.20); Red Cell Distribution Width 14.2 % (11.8-14.3); White Blood Cell 10.6 10^3/uL (4.4-10.8)
[2022-01-16 06:31] LABS: Calcium 9.8 mg/dL (8.5-10.1); Potassium 3.8 mmol/L (3.5-5.1)
[2022-01-16] MEDS: PIPERACILLIN-TAZOB 3.375GM 100 ML IV SCH ×3 (06:31→21:24)
[2022-01-16] MEDS: MIDODRINE HCL 10 MG TAB PO SCH ×3 (06:31→19:36)
[2022-01-16 06:34] LABS: BUN/Creatinine Ratio 22.2
[2022-01-16 06:47] LABS: Bilirubin, Total 0.6 mg/dL (0.2-1.0); Total Protein 4.6 g/dL (6.4-8.2)
[2022-01-16 08:58] VITALS: BP 102/61
[2022-01-16] MEDS: PHENYTOIN SODIUM 100 MG CAP PO SCH ×2 (11:13→21:23)
[2022-01-16] MEDS: DIGOXIN 0.125 MG TAB PO SCH (11:14)
[2022-01-16] MEDS: METOPROLOL TARTRATE 25 MG TAB PO SCH ×2 (11:15→21:25)
[2022-01-16] MEDS: ENOXAPARIN SOD 40 MG/0.4 ML SYRINGE SC SCH (11:16)
[2022-01-16 13:45] VITALS: BP 99/30
[2022-01-16 17:03] VITALS: BP 102/60
[2022-01-16] MEDS: FUROSEMIDE 40 MG TAB PO SCH (19:36)
[2022-01-16 22:00] VITALS: BP 83/50
[2022-01-17] MEDS: ACETAMINOPHEN 325 MG TAB PO PRN (03:27)
[2022-01-17 04:37] VITALS: BP 83/50
[2022-01-17 05:21] VITALS: BP 92/53
[2022-01-17] MEDS: MIDODRINE HCL 10 MG TAB PO SCH ×3 (06:21→18:00)
[2022-01-17] MEDS: PIPERACILLIN-TAZOB 3.375GM 100 ML IV SCH ×3 (06:21→22:26)
[2022-01-17 06:39] LABS: Basophils # (auto) 0 10 ^3/uL (0-0.2); Eosinophils # (auto) 0.1 10 ^3/uL (0-0.8); Hemoglobin 10.6 g/dL (12.2-16.2); Mean Corpuscular Hemoglobin 26.6 pg (28.0-32.0); Monocytes # (auto) 1.5 10 ^3/uL (0-1.3); White Blood Cell 8.6 10^3/uL (4.4-10.8)
[2022-01-17 06:42] LABS: Eosinophils % (auto) 0.8 % (0.0-7.0); Hematocrit 32.8 % (36.0-46.0); Lymphocytes # (auto) 1.4 10 ^3/uL (0.4-5.4); Lymphocytes % (auto) 16.8 % (10.0-50.0); Mean Corpuscular Hgb Conc. 32.2 g/dL (32.0-36.0); Mean Corpuscular Volume 82.6 fL (80.0-100.0); Monocytes % (auto) 17.5 % (0.0-12.0); Neutrophils # (auto) 5.5 10 ^3/uL (1.6-8.6); Neutrophils % (auto) 64.9 % (37.0-80.0); Potassium 3.5 mmol/L (3.5-5.1); Red Blood Cells 3.97 10^6/uL (4.0-5.20); Red Cell Distribution Width 14.5 % (11.8-14.3)
[2022-01-17 06:50] LABS: Albumin 1.9 g/dL (3.4-5.0); BUN/Creatinine Ratio 17.1; Bilirubin, Total 0.4 mg/dL (0.2-1.0); Total Protein 4.1 g/dL (6.4-8.2)
[2022-01-17 09:00] VITALS: BP 112/62
[2022-01-17] MEDS: METOPROLOL TARTRATE 25 MG TAB PO SCH ×2 (12:00→22:00)
[2022-01-17] MEDS: ENOXAPARIN SOD 40 MG/0.4 ML SYRINGE SC SCH (12:00)
[2022-01-17] MEDS: DIGOXIN 0.125 MG TAB PO SCH (12:01)
[2022-01-17] MEDS: PHENYTOIN SODIUM 100 MG CAP PO SCH ×2 (12:02→22:27)
[2022-01-17] MEDS: FUROSEMIDE 40 MG TAB PO SCH (12:02)
[2022-01-17 13:00] VITALS: BP 99/58
[2022-01-17 17:00] VITALS: BP 115/55
[2022-01-17 22:00] VITALS: BP 93/71
[2022-01-18 05:00] VITALS: BP 93/52
[2022-01-18] MEDS: MIDODRINE HCL 10 MG TAB PO SCH ×3 (05:43→17:42)
[2022-01-18] MEDS: PIPERACILLIN-TAZOB 3.375GM 100 ML IV SCH ×3 (05:44→21:32)
[2022-01-18 06:11] LABS: Basophils # (auto) 0 10 ^3/uL (0-0.2); Basophils % (auto) 0.1 % (0.0-2.0); Eosinophils # (auto) 0.1 10 ^3/uL (0-0.8); Eosinophils % (auto) 0.9 % (0.0-7.0); Hematocrit 33.8 % (36.0-46.0); Lymphocytes # (auto) 1.6 10 ^3/uL (0.4-5.4); Lymphocytes % (auto) 16.9 % (10.0-50.0); Mean Corpuscular Hemoglobin 26.5 pg (28.0-32.0); Mean Corpuscular Hgb Conc. 32.4 g/dL (32.0-36.0); Mean Corpuscular Volume 81.7 fL (80.0-100.0); Monocytes # (auto) 1.3 10 ^3/uL (0-1.3); Monocytes % (auto) 13.6 % (0.0-12.0); Neutrophils # (auto) 6.6 10 ^3/uL (1.6-8.6); Neutrophils % (auto) 68.5 % (37.0-80.0); Red Blood Cells 4.14 10^6/uL (4.0-5.20); Red Cell Distribution Width 14.3 % (11.8-14.3); White Blood Cell 9.7 10^3/uL (4.4-10.8)
[2022-01-18 06:38] LABS: Calcium 8.7 mg/dL (8.5-10.1); Potassium 3.5 mmol/L (3.5-5.1)
[2022-01-18 06:43] LABS: Albumin 1.9 g/dL (3.4-5.0); BUN/Creatinine Ratio 15.5; Bilirubin, Total 0.3 mg/dL (0.2-1.0); Total Protein 4.3 g/dL (6.4-8.2)
[2022-01-18 09:00] VITALS: BP 83/37
[2022-01-18] MEDS: PHENYTOIN SODIUM 100 MG CAP PO SCH ×2 (09:26→21:32)
[2022-01-18] MEDS: ENOXAPARIN SOD 40 MG/0.4 ML SYRINGE SC SCH (09:26)
[2022-01-18] MEDS: DIGOXIN 0.125 MG TAB PO SCH (09:26)
[2022-01-18] MEDS: FUROSEMIDE 40 MG TAB PO SCH (09:27)
[2022-01-18 13:04] VITALS: BP 96/56
[2022-01-18 16:28] VITALS: BP 112/54
[2022-01-19] MEDS: PIPERACILLIN-TAZOB 3.375GM 100 ML IV SCH (06:37)
[2022-01-19] MEDS: MIDODRINE HCL 10 MG TAB PO SCH ×3 (06:37→17:49)
[2022-01-19 09:00] VITALS: BP 96/49
[2022-01-19] MEDS: DIGOXIN 0.125 MG TAB PO SCH (09:49)
[2022-01-19] MEDS: ENOXAPARIN SOD 40 MG/0.4 ML SYRINGE SC SCH (09:49)
[2022-01-19] MEDS: PHENYTOIN SODIUM 100 MG CAP PO SCH ×2 (09:50→21:01)
[2022-01-19] MEDS: FUROSEMIDE 40 MG TAB PO SCH (09:50)
[2022-01-19 13:00] VITALS: BP 145/53
[2022-01-19 16:58] VITALS: BP 113/57
[2022-01-19] MEDS: CEFUROXIME 250 MG TAB PO SCH (21:03)
[2022-01-19 21:12] VITALS: BP 110/63
[2022-01-20 05:16] VITALS: BP 111/61
[2022-01-20] MEDS: MIDODRINE HCL 10 MG TAB PO SCH ×2 (05:17→12:27)
[2022-01-20 07:11] LABS: Digoxin (Lanoxin) 0.7 ng/mL (0.8-2)
[2022-01-20] MEDS ORDERED: CEFU500T43 PO (09:03)
[2022-01-20] MEDS: FUROSEMIDE 40 MG TAB PO SCH (10:17)
[2022-01-20] MEDS: PHENYTOIN SODIUM 100 MG CAP PO SCH (10:17)
[2022-01-20] MEDS: DIGOXIN 0.125 MG TAB PO SCH (10:17)
[2022-01-20] MEDS: ENOXAPARIN SOD 40 MG/0.4 ML SYRINGE SC SCH (10:17)
[2022-01-20] MEDS: CEFUROXIME 250 MG TAB PO SCH (10:25)
== END 2022-01-20 15:30 | disposition home or self-care (01) | DRG 871 ==
LOC: EDBD 14:19 → ER 14:19 → TELE 19:12 → TELE-EAST 23:44 → TELE-WESTW 01-14 22:50
PROVIDERS: ADMIT Registered Nurse; ATTEND Nurse Practitioner Acute Care
DX: A41.9 Sepsis, unspecified organism (principal); E43 Unspecified severe protein-calorie malnutrition; G93.41 Metabolic encephalopathy; I48.91 Unspecified atrial fibrillation; E88.09 Other disorders of plasma-protein metabolism, not elsewhere classified; J44.9 Chronic obstructive pulmonary disease, unspecified; G40.909 Epilepsy, unspecified, not intractable, without status epilepticus; Z20.822 Contact with and (suspected) exposure to COVID-19; E03.9 Hypothyroidism, unspecified; I11.0 Hypertensive heart disease with heart failure; N30.90 Cystitis, unspecified without hematuria; I50.9 Heart failure, unspecified; Z86.73 Personal history of transient ischemic attack (TIA), and cerebral infarction without residual deficits; Z90.710 Acquired absence of both cervix and uterus; Z68.24 Body mass index [BMI] 24.0-24.9, adult; Z88.2 Allergy status to sulfonamides; Z90.49 Acquired absence of other specified parts of digestive tract
CPT/HCPCS: 36415; 36600; 71045; 76705; 80048; 80053; 80162; 80185; 81001; 82805; 83880; 84484; 85025; 85610; 87040; 87081; 87086; 93005; 93306; 96361; 96365; 96375; 97116; 97163; 97530; G0378; J0696; J2543

== ENCOUNTER 2023-02-07 16:06 | Inpatient (IN) | payer MEDICARE, MEDICAID ==
[~2023-02-07] VITALS: Ht 157.5 cm; Wt 59.0 kg
[~2023-02-07 16:06] MED LIST changes: -ACET-1158 PO; +ACET500T58 PO; +ASPI1TAB20 PO; +CEFU500T43 PO; +MIDO5TAB4 PO; -PHE100C PO; +PHEN1CAP60 PO
[2023-02-07] MEDS ORDERED: ACETAMINOPHEN 500 MG TAB PO ONE (17:15)
[2023-02-07] MEDS ORDERED: cefTRIAXone 1GM/50ML D5W 50 ML IV ONE (17:30)
[2023-02-07 17:58] LABS: Basophils # (auto) 0 10 ^3/uL (0-0.2); Basophils % (auto) 0.2 % (0.0-2.0); Eosinophils # (auto) 0 10 ^3/uL (0-0.8); Eosinophils % (auto) 0.5 % (0.0-7.0); Hematocrit 39.4 % (36.0-46.0); Lymphocytes # (auto) 1.2 10 ^3/uL (0.4-5.4); Lymphocytes % (auto) 11.2 % (10.0-50.0); Mean Corpuscular Hemoglobin 28.6 pg (28.0-32.0); Mean Corpuscular Hgb Conc. 32.9 g/dL (32.0-36.0); Mean Corpuscular Volume 86.8 fL (80.0-100.0); Monocytes # (auto) 1.7 10 ^3/uL (0-1.3); Monocytes % (auto) 15.5 % (0.0-12.0); Neutrophils # (auto) 7.8 10 ^3/uL (1.6-8.6); Neutrophils % (auto) 72.6 % (37.0-80.0); Red Blood Cells 4.54 10^6/uL (4.0-5.20); Red Cell Distribution Width 13.1 % (11.8-14.3); White Blood Cell 10.8 10^3/uL (4.4-10.8)
[2023-02-07 18:05] LABS: Alanine Aminotransferase 228 U/L (7-40); Albumin 3.9 g/dL (3.2-4.8); Alkaline Phosphatase 92 U/L (46-116); Anion Gap 7 (5-15); Aspartate Aminotransferase 407 U/L (13-40); BUN/Creatinine Ratio 13.5 (10.0-20.0); Blood Urea Nitrogen 10 mg/dL (9-23); Calcium 10.4 mg/dL (8.5-10.1); Carbon Dioxide 25 mmol/L (20-30); Chloride 105 mmol/L (98-107); Glucose 110 mg/dL (74-106); Potassium 3.5 mmol/L (3.5-5.1); Sodium 137 mmol/L (136-145)
[2023-02-07 18:06] LABS: Bilirubin, Total 0.3 mg/dL (0.2-1.0); Total Protein 6.4 g/dL (5.7-8.2)
[2023-02-07] MEDS ORDERED: SODIUM CHLORIDE 0.9% 1,000 ML IV ONE (18:15)
[2023-02-07] MEDS ORDERED: dilTIAZem 125mg/125ml BAG KIT 125 ML IV ONE (18:15)
[2023-02-07 19:30] VITALS: PULSE 104; RESP 20; O2SAT 97
[2023-02-07] MEDS ORDERED: ALBUTEROL SULF 2.5 MG/0.5ML(0.5%) NEB SOLN NEB PRN (21:00)
[2023-02-07] MEDS ORDERED: NITROGLYCERIN 0.4 MG SL TAB SL PRN (21:00)
[2023-02-07] MEDS ORDERED: ONDANSETRON HCL 4 MG/2 ML VIAL IV PRN (21:00)
[2023-02-07] MEDS ORDERED: MORPHINE SULFATE INJ 2 MG/ml SYRG IV PRN (21:00)
[2023-02-07 21:23] VITALS: O2SAT 97
[2023-02-07 21:34] VITALS: BP 106/54; PULSE 102; RESP 22; TEMP 101; O2SAT 97
[2023-02-07 22:24] LABS: Urine Bacteria MANY /hpf (None Seen); Urine Blood 1+ /uL (Negative); Urine Clarity HAZY (Clear); Urine Color Yellow (Yellow); Urine Hyaline Cast FEW /lpf (0 - 2); Urine Mucus FEW (None Seen); Urine Protein, UAD TRACE (Negative); Urine Specific Gravity 1.006 (1.001-1.035); Urine Urobilinogen Normal (Negative); Urine WBC 52 /hpf (0 - 5); Urine pH 6.5 (5.0-8.0)
[2023-02-07] MEDS: PHENYTOIN SODIUM 100 MG CAP PO SCH (22:26)
[2023-02-08] VITALS (80 sets, daily range): BP systolic 66–150; BP diastolic 31–132; PULSE 71–155; RESP 10–31; TEMP 97.5–99.9; O2SAT 85–100
[2023-02-08] MEDS: ACETAMINOPHEN 325 MG TAB PO PRN (02:44)
[2023-02-08] MEDS ORDERED: dilTIAZem 25 MG/5 ML VIAL IV ONE ×3 (04:02→04:08)
[2023-02-08] MEDS: TEMAZEPAM 15 MG CAP PO PRN ×2 (04:06→21:33)
[2023-02-08 08:41] LABS: Anion Gap 14 (5-15); Carbon Dioxide 15 mmol/L (20-30); Chloride 109 mmol/L (98-107); Potassium 4.1 mmol/L (3.5-5.1); Sodium 138 mmol/L (136-145)
[2023-02-08 08:42] LABS: Calcium 9.6 mg/dL (8.5-10.1)
[2023-02-08] MEDS: PHENYTOIN SODIUM 100 MG CAP PO SCH ×2 (08:46→21:33)
[2023-02-08 08:47] LABS: BUN/Creatinine Ratio 12.5 (10.0-20.0); Blood Urea Nitrogen 10 mg/dL (9-23); Glucose 94 mg/dL (74-106)
[2023-02-08] MEDS: DIGOXIN 0.125 MG TAB PO SCH (08:47)
[2023-02-08] MEDS: ASPirin 81 mg TAB PO SCH (08:47)
[2023-02-08] MEDS: METOPROLOL SUCCINATE XL 50 MG TAB PO SCH (08:48)
[2023-02-08] MEDS: PARoxetine 20 MG TAB PO SCH (08:48)
[2023-02-08] MEDS: ENOXAPARIN SOD 40 MG/0.4 ML SYRINGE SC SCH (08:48)
[2023-02-08] MEDS ORDERED: cefTRIAXone 1GM/50ML D5W 50 ML IV SCH (09:00)
[2023-02-08] MEDS ORDERED: AZITHROMYCIN 500MG/ 250ML 250 ML IV SCH (10:00)
[2023-02-08] MEDS ORDERED: MIDODRINE HCL 10 MG TAB PO ONE (10:45)
[2023-02-08] MEDS ORDERED: VANCOMYCIN PER PHARMACY 0 MG IV SCH (11:15)
[2023-02-08 11:32] LABS: Hematocrit 37.7 % (36.0-46.0); Hemoglobin 11.9 g/dL (12.2-16.2); Mean Corpuscular Hemoglobin 28.5 pg (28.0-32.0); Mean Corpuscular Hgb Conc. 31.6 g/dL (32.0-36.0); Red Cell Distribution Width 13.3 % (11.8-14.3); White Blood Cell 16.4 10^3/uL (4.4-10.8)
[2023-02-08 11:44] LABS: Basophils % (manual) 0 (0.0-2.0); Blast Cells 0; Eosinophils % (manual) 0 (0-7); Metamyelocytes % 0; Myelocytes % 0; Promyelocytes % 0; Reactive Lymphocytes 0
[2023-02-08] MEDS ORDERED: VANCOMYCIN 750mg/250ml 250 ML IV ONE (12:15)
[2023-02-08 12:25] LABS: Band Neutrophils % (manual) 6; Lymphocytes % (manual) 6 (10.0-50.0); Monocytes % (manual) 13 (0-12)
[2023-02-08 12:26] LABS: Platelet Estimate Adequate
[2023-02-08] MEDS ORDERED: CEFEPIME 1GM/ 50ML 50 ML IV SCH (14:00)
[2023-02-08 14:29] LABS: Rapid Influenza A Negative (Negative); Rapid Influenza B Negative (Negative)
[2023-02-08 14:41] LABS: COVID19 ANTIGEN SOFIA FIA POSITIVE (NEGATIVE)
[2023-02-08 14:53] LABS: INR 1.1 (0.9-1.15); Partial Thromboplastin Time 32.8 SEC (24.5-34.5); Prothrombin Time 11.5 sec (9.3-11.8)
[2023-02-08] MEDS: MIDODRINE HCL 10 MG TAB PO SCH (16:37)
[2023-02-08] MEDS: DexAMETHasone 4 MG TAB PO SCH (16:37)
[2023-02-08] MEDS: SODIUM CHLORIDE 0.9% 1,000 ML IV SCH (18:35)
[2023-02-08] MEDS: CEFEPIME 1GM/ 50ML 50 ML IV SCH (21:34)
[2023-02-09] VITALS (20 sets, daily range): BP systolic 94–118; BP diastolic 42–82; PULSE 67–113; RESP 14–29; TEMP 97.3–99.7; O2SAT 89–99
[2023-02-09] MEDS: MIDODRINE HCL 10 MG TAB PO SCH ×3 (05:49→18:22)
[2023-02-09] MEDS: SODIUM CHLORIDE 0.9% 1,000 ML IV SCH (07:20)
[2023-02-09 08:58] LABS: Basophils # (auto) 0 10 ^3/uL (0-0.2); Basophils % (auto) 0.1 % (0.0-2.0); Eosinophils # (auto) 0.1 10 ^3/uL (0-0.8); Eosinophils % (auto) 0.4 % (0.0-7.0); Hematocrit 38.9 % (36.0-46.0); Hemoglobin 12.2 g/dL (12.2-16.2); Lymphocytes # (auto) 1.4 10 ^3/uL (0.4-5.4); Lymphocytes % (auto) 9.7 % (10.0-50.0); Mean Corpuscular Hemoglobin 28.4 pg (28.0-32.0); Mean Corpuscular Hgb Conc. 31.4 g/dL (32.0-36.0); Mean Corpuscular Volume 90.5 fL (80.0-100.0); Monocytes # (auto) 1.9 10 ^3/uL (0-1.3); Monocytes % (auto) 13.4 % (0.0-12.0); Neutrophils # (auto) 11.1 10 ^3/uL (1.6-8.6); Neutrophils % (auto) 76.4 % (37.0-80.0); Nucleated Red Blood Cells % 0.1 %; Red Blood Cells 4.29 10^6/uL (4.0-5.20); White Blood Cell 14.5 10^3/uL (4.4-10.8)
[2023-02-09] MEDS ORDERED: VANCOMYCIN 750mg/250ml 250 ML IV SCH (09:00)
[2023-02-09 09:04] LABS: Anion Gap 9 (5-15); Carbon Dioxide 20 mmol/L (20-30); Chloride 108 mmol/L (98-107); Potassium 3.3 mmol/L (3.5-5.1); Sodium 137 mmol/L (136-145)
[2023-02-09 09:05] LABS: Calcium 9.8 mg/dL (8.5-10.1)
[2023-02-09 09:10] LABS: BUN/Creatinine Ratio 9.5 (10.0-20.0); Blood Urea Nitrogen 6 mg/dL (9-23); Glucose 97 mg/dL (74-106)
[2023-02-09] MEDS ORDERED: POTASSIUM CHL 20 Meq TABLET PO ONE (09:30)
[2023-02-09] MEDS: PARoxetine 20 MG TAB PO SCH (09:44)
[2023-02-09] MEDS: PHENYTOIN SODIUM 100 MG CAP PO SCH ×2 (09:44→22:40)
[2023-02-09] MEDS: ASPirin 81 mg TAB PO SCH (09:44)
[2023-02-09] MEDS: DIGOXIN 0.125 MG TAB PO SCH (09:45)
[2023-02-09] MEDS: DexAMETHasone 4 MG TAB PO SCH (09:45)
[2023-02-09] MEDS: ENOXAPARIN SOD 40 MG/0.4 ML SYRINGE SC SCH (09:48)
[2023-02-09] MEDS: METOPROLOL SUCCINATE XL 50 MG TAB PO SCH (10:00)
[2023-02-09] MEDS: CEFEPIME 1GM/ 50ML 50 ML IV SCH (10:40)
[2023-02-09] MEDS ORDERED: cefTRIAXone 1GM/50ML D5W 50 ML IV ONE (11:30)
[2023-02-09 13:14] LABS: Albumin 3.3 g/dL (3.2-4.8); Bilirubin, Direct 0.2 mg/dL (<0.3)
[2023-02-09 13:15] LABS: Bilirubin, Total 0.4 mg/dL (0.2-1.0); Total Protein 5.6 g/dL (5.7-8.2)
[2023-02-09] MEDS ORDERED: APIXABAN 2.5 MG TAB PO SCH (22:00)
[2023-02-10] VITALS (14 sets, daily range): BP systolic 82–143; BP diastolic 49–88; PULSE 60–110; RESP 14–24; TEMP 96.6–98.3; O2SAT 89–98
[2023-02-10] MEDS ORDERED: VANCOMYCIN 750mg/250ml 250 ML IV SCH
[2023-02-10 05:26] LABS: Basophils # (auto) 0 10 ^3/uL (0-0.2); Basophils % (auto) 0.2 % (0.0-2.0); Eosinophils # (auto) 0 10 ^3/uL (0-0.8); Eosinophils % (auto) 0.5 % (0.0-7.0); Hematocrit 38.2 % (36.0-46.0); Hemoglobin 12.4 g/dL (12.2-16.2); Lymphocytes # (auto) 1.7 10 ^3/uL (0.4-5.4); Mean Corpuscular Hemoglobin 28.6 pg (28.0-32.0); Mean Corpuscular Hgb Conc. 32.4 g/dL (32.0-36.0); Mean Corpuscular Volume 88.4 fL (80.0-100.0); Monocytes # (auto) 0.9 10 ^3/uL (0-1.3); Monocytes % (auto) 9.2 % (0.0-12.0); Neutrophils # (auto) 7.5 10 ^3/uL (1.6-8.6); Neutrophils % (auto) 73.1 % (37.0-80.0); Red Blood Cells 4.32 10^6/uL (4.0-5.20); Red Cell Distribution Width 13.8 % (11.8-14.3); White Blood Cell 10.2 10^3/uL (4.4-10.8)
[2023-02-10 05:29] LABS: Anion Gap 6 (5-15); Carbon Dioxide 19 mmol/L (20-30); Chloride 114 mmol/L (98-107); Potassium 4.8 mmol/L (3.5-5.1); Sodium 139 mmol/L (136-145)
[2023-02-10 05:31] LABS: Calcium 10.2 mg/dL (8.5-10.1)
[2023-02-10 05:36] LABS: BUN/Creatinine Ratio 17.7 (10.0-20.0); Blood Urea Nitrogen 11 mg/dL (9-23); Glucose 103 mg/dL (74-106)
[2023-02-10] MEDS: MIDODRINE HCL 10 MG TAB PO SCH ×3 (06:38→18:43)
[2023-02-10] MEDS ORDERED: LEVO750T40 PO ×2 (09:53)
[2023-02-10] MEDS ORDERED: APIX2.5T PO (09:55)
[2023-02-10] MEDS: METOPROLOL SUCCINATE XL 50 MG TAB PO SCH ×2 (10:00→17:10)
[2023-02-10] MEDS: cefTRIAXone 1GM/50ML D5W 50 ML IV SCH (10:11)
[2023-02-10] MEDS: PARoxetine 20 MG TAB PO SCH (10:11)
[2023-02-10] MEDS: ASPirin 81 mg TAB PO SCH (10:12)
[2023-02-10] MEDS: PHENYTOIN SODIUM 100 MG CAP PO SCH ×2 (10:12→22:15)
[2023-02-10] MEDS: DIGOXIN 0.125 MG TAB PO SCH (10:12)
[2023-02-10] MEDS: ENOXAPARIN SOD 40 MG/0.4 ML SYRINGE SC SCH (10:12)
[2023-02-10 12:23] LABS: COVID19 ANTIGEN SOFIA FIA POSITIVE (NEGATIVE)
[2023-02-10] MEDS ORDERED: DOXY1CAP57 PO (19:00)
[2023-02-10] MEDS ORDERED: MOLN200C PO ×3 (19:02→19:13)
[2023-02-10] MEDS: PATIENTS OWN MEDICATION PO SCH (22:00)
[2023-02-10] MEDS: ACETAMINOPHEN 325 MG TAB PO PRN (22:15)
[2023-02-10] MEDS: TEMAZEPAM 15 MG CAP PO PRN (22:20)
[2023-02-11] VITALS (11 sets, daily range): BP systolic 103–145; BP diastolic 53–76; PULSE 69–101; RESP 16–24; TEMP 97.5–98.3; O2SAT 94–99
[2023-02-11] MEDS: MIDODRINE HCL 10 MG TAB PO SCH ×3 (05:23→18:00)
[2023-02-11 05:46] LABS: Basophils # (auto) 0 10 ^3/uL (0-0.2); Basophils % (auto) 0.3 % (0.0-2.0); Eosinophils # (auto) 0.1 10 ^3/uL (0-0.8); Eosinophils % (auto) 1.6 % (0.0-7.0); Hematocrit 36.5 % (36.0-46.0); Hemoglobin 11.8 g/dL (12.2-16.2); Lymphocytes # (auto) 2.6 10 ^3/uL (0.4-5.4); Lymphocytes % (auto) 30.3 % (10.0-50.0); Mean Corpuscular Hemoglobin 28.5 pg (28.0-32.0); Mean Corpuscular Hgb Conc. 32.5 g/dL (32.0-36.0); Mean Corpuscular Volume 87.8 fL (80.0-100.0); Monocytes # (auto) 0.8 10 ^3/uL (0-1.3); Monocytes % (auto) 8.7 % (0.0-12.0); Neutrophils # (auto) 5.1 10 ^3/uL (1.6-8.6); Neutrophils % (auto) 59.1 % (37.0-80.0); Nucleated Red Blood Cells % 0.1 %; Red Blood Cells 4.15 10^6/uL (4.0-5.20); Red Cell Distribution Width 13.7 % (11.8-14.3); White Blood Cell 8.6 10^3/uL (4.4-10.8)
[2023-02-11 05:59] LABS: Chloride 110 mmol/L (98-107); Potassium 4.4 mmol/L (3.5-5.1); Sodium 137 mmol/L (136-145)
[2023-02-11 06:00] LABS: Anion Gap 5 (5-15); Carbon Dioxide 22 mmol/L (20-30)
[2023-02-11 06:01] LABS: Calcium 10.3 mg/dL (8.7-10.4)
[2023-02-11 06:05] LABS: Glucose 85 mg/dL (74-106)
[2023-02-11 06:06] LABS: BUN/Creatinine Ratio 20.3 (10.0-20.0); Blood Urea Nitrogen 13 mg/dL (9-23)
[2023-02-11] MEDS: PATIENTS OWN MEDICATION PO SCH ×2 (10:00→20:58)
[2023-02-11] MEDS: DIGOXIN 0.125 MG TAB PO SCH (10:26)
[2023-02-11] MEDS: ASPirin 81 mg TAB PO SCH (10:26)
[2023-02-11] MEDS: PHENYTOIN SODIUM 100 MG CAP PO SCH ×2 (10:26→20:57)
[2023-02-11] MEDS: PARoxetine 20 MG TAB PO SCH (10:26)
[2023-02-11] MEDS: ENOXAPARIN SOD 40 MG/0.4 ML SYRINGE SC SCH (10:26)
[2023-02-11] MEDS: METOPROLOL SUCCINATE XL 50 MG TAB PO SCH (10:27)
[2023-02-11] MEDS: cefTRIAXone 1GM/50ML D5W 50 ML IV SCH (10:27)
[2023-02-11] MEDS ORDERED: ENOXAPARIN SOD 60 MG/0.6 ML SYRINGE SC SCH (11:30)
[2023-02-11] MEDS: TEMAZEPAM 15 MG CAP PO PRN (20:57)
[2023-02-11] MEDS: ENOXAPARIN SOD 60 MG/0.6 ML SYRINGE SC SCH (20:58)
[2023-02-12] VITALS (10 sets, daily range): BP systolic 96–112; BP diastolic 56–61; PULSE 58–94; RESP 14–24; TEMP 97.5–98.4; O2SAT 94–100
[2023-02-12] MEDS: MIDODRINE HCL 10 MG TAB PO SCH ×3 (05:29→17:39)
[2023-02-12 05:47] LABS: Basophils # (auto) 0 10 ^3/uL (0-0.2); Basophils % (auto) 0.2 % (0.0-2.0); Eosinophils # (auto) 0.1 10 ^3/uL (0-0.8); Eosinophils % (auto) 1.4 % (0.0-7.0); Hematocrit 37.8 % (36.0-46.0); Hemoglobin 12.3 g/dL (12.2-16.2); Lymphocytes # (auto) 2.6 10 ^3/uL (0.4-5.4); Lymphocytes % (auto) 25.3 % (10.0-50.0); Mean Corpuscular Hemoglobin 28.2 pg (28.0-32.0); Mean Corpuscular Hgb Conc. 32.5 g/dL (32.0-36.0); Mean Corpuscular Volume 86.9 fL (80.0-100.0); Monocytes # (auto) 0.9 10 ^3/uL (0-1.3); Monocytes % (auto) 8.9 % (0.0-12.0); Neutrophils # (auto) 6.7 10 ^3/uL (1.6-8.6); Neutrophils % (auto) 64.2 % (37.0-80.0); Red Blood Cells 4.35 10^6/uL (4.0-5.20); Red Cell Distribution Width 13.6 % (11.8-14.3); White Blood Cell 10.4 10^3/uL (4.4-10.8)
[2023-02-12 06:01] LABS: Anion Gap 5 (5-15); Carbon Dioxide 24 mmol/L (20-30); Chloride 109 mmol/L (98-107); Potassium 4.1 mmol/L (3.5-5.1); Sodium 138 mmol/L (136-145)
[2023-02-12 06:02] LABS: Calcium 10.3 mg/dL (8.7-10.4)
[2023-02-12 06:07] LABS: BUN/Creatinine Ratio 14.5 (10.0-20.0); Blood Urea Nitrogen 8 mg/dL (9-23); Glucose 89 mg/dL (74-106)
[2023-02-12] MEDS: PATIENTS OWN MEDICATION PO SCH ×2 (10:00→21:10)
[2023-02-12] MEDS: ASPirin 81 mg TAB PO SCH (11:13)
[2023-02-12] MEDS: ENOXAPARIN SOD 60 MG/0.6 ML SYRINGE SC SCH ×2 (11:14→21:09)
[2023-02-12] MEDS: PARoxetine 20 MG TAB PO SCH (11:14)
[2023-02-12] MEDS: PHENYTOIN SODIUM 100 MG CAP PO SCH ×2 (11:14→21:09)
[2023-02-12] MEDS: DIGOXIN 0.125 MG TAB PO SCH (11:14)
[2023-02-12] MEDS: cefTRIAXone 1GM/50ML D5W 50 ML IV SCH (11:15)
[2023-02-12] MEDS: METOPROLOL SUCCINATE XL 50 MG TAB PO SCH (11:27)
[2023-02-12] MEDS: TEMAZEPAM 15 MG CAP PO PRN (21:09)
[2023-02-13 04:36] VITALS: BP 100/60; PULSE 66; RESP 16; TEMP 98; O2SAT 100
[2023-02-13 05:25] LABS: Alanine Aminotransferase 14 U/L (7-40); Albumin 3.1 g/dL (3.2-4.8); Alkaline Phosphatase 116 U/L (46-116); Anion Gap 3 (5-15); Aspartate Aminotransferase 17 U/L (13-40); BUN/Creatinine Ratio 22.5 (10.0-20.0); Calcium 10.4 mg/dL (8.7-10.4); Carbon Dioxide 32 mmol/L (20-30); Chloride 102 mmol/L (98-107); Glucose 90 mg/dL (74-106); Potassium 4.3 mmol/L (3.5-5.1); Sodium 137 mmol/L (136-145)
[2023-02-13 05:26] LABS: Bilirubin, Total 0.5 mg/dL (0.2-1.0); Total Protein 4.7 g/dL (5.7-8.2)
[2023-02-13] MEDS: MIDODRINE HCL 10 MG TAB PO SCH ×2 (05:32→12:07)
[2023-02-13 05:36] LABS: Blood Urea Nitrogen 25 mg/dL (9-23)
[2023-02-13 06:32] LABS: Hematocrit 38.3 % (36.0-46.0); Hemoglobin 12.5 g/dL (12.2-16.2); Mean Corpuscular Hemoglobin 28.7 pg (28.0-32.0); Mean Corpuscular Hgb Conc. 32.7 g/dL (32.0-36.0); Mean Corpuscular Volume 87.8 fL (80.0-100.0); Red Blood Cells 4.36 10^6/uL (4.0-5.20); Red Cell Distribution Width 13.7 % (11.8-14.3); White Blood Cell 11.8 10^3/uL (4.4-10.8)
[2023-02-13 07:11] LABS: Band Neutrophils % (manual) 0; Basophils % (manual) 0 (0.0-2.0); Blast Cells 0; Eosinophils % (manual) 0 (0-7); Metamyelocytes % 0; Promyelocytes % 0; Reactive Lymphocytes 0
[2023-02-13 08:00] VITALS: BP 138/83; PULSE 64; PULSE 73; RESP 18; TEMP 97.8; O2SAT 95
[2023-02-13 08:02] LABS: Lymphocytes % (manual) 27 (10.0-50.0); Monocytes % (manual) 8 (0-12); Myelocytes % 4
[2023-02-13 08:03] LABS: Platelet Estimate Adequate
[2023-02-13] MEDS ORDERED: SODIUM CHLORIDE 0.9% 1,000 ML IV SCH (08:15)
[2023-02-13 08:30] VITALS: BP 138/83; PULSE 73; RESP 18; TEMP 97.8; O2SAT 95
[2023-02-13] MEDS: PATIENTS OWN MEDICATION PO SCH (09:24)
[2023-02-13] MEDS: cefTRIAXone 1GM/50ML D5W 50 ML IV SCH (09:38)
[2023-02-13] MEDS: ASPirin 81 mg TAB PO SCH (09:39)
[2023-02-13] MEDS: ENOXAPARIN SOD 60 MG/0.6 ML SYRINGE SC SCH (09:39)
[2023-02-13] MEDS: PARoxetine 20 MG TAB PO SCH (09:39)
[2023-02-13] MEDS: DIGOXIN 0.125 MG TAB PO SCH (09:39)
[2023-02-13] MEDS: PHENYTOIN SODIUM 100 MG CAP PO SCH (09:39)
[2023-02-13] MEDS: METOPROLOL SUCCINATE XL 50 MG TAB PO SCH (09:41)
[2023-02-13 10:00] VITALS: O2SAT 99
[2023-02-13 10:30] VITALS: O2SAT 99
[2023-02-13 12:30] VITALS: BP 124/73; PULSE 90; RESP 17; TEMP 98.4; O2SAT 97
[2023-02-13] MEDS ORDERED: CEFEPIME 2GM/50ML NS 50 ML IV SCH (17:00)
== END 2023-02-13 17:10 | disposition home or self-care (01) | DRG 871 ==
LOC: EDBD 16:06 → ER 16:06 → TELE 21:01 → ICU CENTRL 02-08 03:50 → DOU IN ICU 02-08 03:51 → TELE-CENTR 02-11 20:20
PROVIDERS: ADMIT Internal Medicine Pulmonary Disease; ATTEND Student in an Organized Health Care Education/Training Program
DX: A41.9 Sepsis, unspecified organism (principal); G93.41 Metabolic encephalopathy; U07.1 COVID-19; N39.0 Urinary tract infection, site not specified; I48.20 Chronic atrial fibrillation, unspecified; I50.32 Chronic diastolic (congestive) heart failure; I11.0 Hypertensive heart disease with heart failure; G40.909 Epilepsy, unspecified, not intractable, without status epilepticus; F41.9 Anxiety disorder, unspecified; J44.9 Chronic obstructive pulmonary disease, unspecified; Z90.49 Acquired absence of other specified parts of digestive tract; Z86.73 Personal history of transient ischemic attack (TIA), and cerebral infarction without residual deficits; Z90.710 Acquired absence of both cervix and uterus; Z79.82 Long term (current) use of aspirin
CPT/HCPCS: 36415; 71045; 71250; 74176; 76705; 80048; 80053; 80076; 81001; 83605; 83690; 83880; 84484; 85007; 85025; 85027; 85610; 85730; 87040; 87070; 87081; 87086; 87205; 87426; 87804; 93005; 93306; G0378; J0696

== ENCOUNTER 2023-04-23 09:06 | Inpatient (IN) | payer MEDICARE, MEDICAID ==
[~2023-04-23] VITALS: Ht 160 cm; Wt 60.5 kg
[~2023-04-23 09:06] MED LIST changes: +APIX2.5T PO; -DEX4T PO; +MOLN200C PO
[2023-04-23] MEDS ORDERED: ALBUTEROL SULF 2.5 MG/0.5ML(0.5%) NEB SOLN NEB ONE (09:30)
[2023-04-23] MEDS ORDERED: methylPREDNISolone SOD SUCC 125 MG/2 ML VL IV ONE (09:30)
[2023-04-23] MEDS ORDERED: IPRATROPIUM BROM 0.5 MG/2.5ML INH SOL NEB ONE (09:30)
[2023-04-23] MEDS ORDERED: SODIUM CHLORIDE 0.9% 1,000 ML IV ONE ×2 (10:00)
[2023-04-23] MEDS ORDERED: cefTRIAXone 1GM/50ML D5W 50 ML IV ONE (10:00)
[2023-04-23] MEDS ORDERED: AZITHROMYCIN 500MG/ 250ML 250 ML IV ONE (10:00)
[2023-04-23 10:10] LABS: Hemoglobin 10.6 g/dL (12.2-16.2); Mean Corpuscular Hemoglobin 26.6 pg (28.0-32.0)
[2023-04-23 10:14] LABS: Basophils # (auto) 0 10 ^3/uL (0-0.2); Basophils % (auto) 0.1 % (0.0-2.0); Eosinophils # (auto) 0 10 ^3/uL (0-0.8); Hematocrit 33.8 % (36.0-46.0); Lymphocytes # (auto) 0.8 10 ^3/uL (0.4-5.4); Lymphocytes % (auto) 5.4 % (10.0-50.0); Mean Corpuscular Hgb Conc. 31.5 g/dL (32.0-36.0); Mean Corpuscular Volume 84.3 fL (80.0-100.0); Monocytes # (auto) 1.1 10 ^3/uL (0-1.3); Monocytes % (auto) 7.4 % (0.0-12.0); Neutrophils # (auto) 12.7 10 ^3/uL (1.6-8.6); Neutrophils % (auto) 87.1 % (37.0-80.0); Nucleated Red Blood Cells % 0.1 %; Red Blood Cells 4.01 10^6/uL (4.0-5.20); Red Cell Distribution Width 12.9 % (11.8-14.3); White Blood Cell 14.6 10^3/uL (4.4-10.8)
[2023-04-23 10:15] LABS: COVID19 ANTIGEN SOFIA FIA NEGATIVE (NEGATIVE); Rapid Influenza A Negative (Negative); Rapid Influenza B Negative (Negative)
[2023-04-23 10:38] LABS: Alanine Aminotransferase 94 U/L (7-40); Albumin 3.5 g/dL (3.2-4.8); Alkaline Phosphatase 83 U/L (46-116); Anion Gap 10 (5-15); Aspartate Aminotransferase 148 U/L (13-40); BUN/Creatinine Ratio 37.7 (10.0-20.0); Blood Urea Nitrogen 29 mg/dL (9-23); Calcium 10.2 mg/dL (8.5-10.1); Carbon Dioxide 21 mmol/L (20-30); Chloride 100 mmol/L (98-107); Glucose 168 mg/dL (74-106); Potassium 4.3 mmol/L (3.5-5.1); Sodium 131 mmol/L (136-145)
[2023-04-23 10:39] LABS: Bilirubin, Total 0.3 mg/dL (0.2-1.0); Total Protein 5.3 g/dL (5.7-8.2)
[2023-04-23] MEDS ORDERED: dilTIAZem 25 MG/5 ML VIAL IV ONE (11:15)
[2023-04-23] MEDS ORDERED: ONDANSETRON HCL 4 MG/2 ML VIAL IV PRN (12:00)
[2023-04-23] MEDS ORDERED: HYDROcodone-ACET 5/325MG TAB PO PRN (12:00)
[2023-04-23] MEDS ORDERED: ACETAMINOPHEN 325 MG TAB PO PRN (12:00)
[2023-04-23] MEDS ORDERED: NITROGLYCERIN 0.4 MG SL TAB SL PRN (12:00)
[2023-04-23] MEDS ORDERED: DOCUSATE SOD 100 MG CAP PO PRN (12:00)
[2023-04-23] MEDS ORDERED: NOREPINEPHRINE 8 MG/250ML KIT 250 ML IV ONE (12:37)
[2023-04-23] MEDS: NOREPINEPHRINE 8 MG/250ML KIT 250 ML IV SCH (13:05)
[2023-04-23] MEDS ORDERED: ASPirin-EC 81 mg tab PO SCH (13:15)
[2023-04-23] MEDS ORDERED: ATOR10TA52 PO (13:19)
[2023-04-23] MEDS: SODIUM CHLORIDE 0.9% 1,000 ML IV SCH (13:45)
[2023-04-23 14:14] LABS: Urine Bacteria MOD /hpf (None Seen); Urine Blood TRACE /uL (Negative); Urine Clarity Clear (Clear); Urine Protein, UAD Negative (Negative); Urine Specific Gravity 1.001 (1.001-1.035); Urine Urobilinogen Normal (Negative); Urine WBC 9 /hpf (0 - 5)
[2023-04-23 14:17] LABS: Urine Color Yellow (Yellow)
[2023-04-23 19:10] VITALS: PULSE 81; RESP 18; O2SAT 94
[2023-04-23 19:20] VITALS: PULSE 95; RESP 18; O2SAT 99
[2023-04-23] MEDS: LEVALBUTEROL HCL 1.25 MG/3 ML NEB NEB SCH (19:25)
[2023-04-23] MEDS: IPRATROPIUM BROM 0.5 MG/2.5ML INH SOL NEB SCH (19:25)
[2023-04-23 19:27] VITALS: O2SAT 94
[2023-04-23 20:05] VITALS: PULSE 108; RESP 24; O2SAT 97
[2023-04-23] MEDS ORDERED: ATORVASTATIN 20 MG TAB PO SCH (22:00)
[2023-04-23] MEDS: methylPREDNISolone SOD SUCC 40 MG/ML VL IV SCH (22:37)
[2023-04-23] MEDS: TEMAZEPAM 15 MG CAP PO SCH (22:38)
[2023-04-23] MEDS: PHENYTOIN SODIUM 100 MG CAP PO SCH (22:38)
[2023-04-24] VITALS (10 sets, daily range): BP systolic 114; BP diastolic 57; PULSE 80–108; RESP 16–21; TEMP 98.3; O2SAT 96–99
[2023-04-24] MEDS: LEVALBUTEROL HCL 1.25 MG/3 ML NEB NEB SCH ×4 (00:17→18:31)
[2023-04-24] MEDS: SODIUM CHLORIDE 0.9% 1,000 ML IV SCH ×2 (02:37→15:55)
[2023-04-24 05:06] LABS: Basophils # (auto) 0 10 ^3/uL (0-0.2); Eosinophils # (auto) 0 10 ^3/uL (0-0.8); Hematocrit 36.7 % (36.0-46.0); Hemoglobin 11.2 g/dL (12.2-16.2); Mean Corpuscular Hemoglobin 26.9 pg (28.0-32.0); Mean Corpuscular Hgb Conc. 30.5 g/dL (32.0-36.0); Mean Corpuscular Volume 88.3 fL (80.0-100.0); Monocytes # (auto) 1.3 10 ^3/uL (0-1.3); Monocytes % (auto) 5.1 % (0.0-12.0); Neutrophils # (auto) 22.7 10 ^3/uL (1.6-8.6); Neutrophils % (auto) 90.9 % (37.0-80.0); Red Blood Cells 4.15 10^6/uL (4.0-5.20); Red Cell Distribution Width 14.3 % (11.8-14.3); White Blood Cell 24.9 10^3/uL (4.4-10.8)
[2023-04-24 05:10] LABS: Alanine Aminotransferase 155 U/L (7-40); Albumin 3.4 g/dL (3.2-4.8); Alkaline Phosphatase 86 U/L (46-116); Anion Gap 10 (5-15); Aspartate Aminotransferase 191 U/L (13-40); BUN/Creatinine Ratio 16.4 (10.0-20.0); Blood Urea Nitrogen 11 mg/dL (9-23); Calcium 9.7 mg/dL (8.7-10.4); Carbon Dioxide 15 mmol/L (20-30); Glucose 168 mg/dL (74-106); Potassium 4.5 mmol/L (3.5-5.1); Sodium 139 mmol/L (136-145)
[2023-04-24 05:11] LABS: Bilirubin, Total < 0.2 mg/dL (0.2-1.0); Total Protein 5.6 g/dL (5.7-8.2)
[2023-04-24 05:20] LABS: Chloride 114 mmol/L (98-107)
[2023-04-24] MEDS: IPRATROPIUM BROM 0.5 MG/2.5ML INH SOL NEB SCH ×3 (06:03→18:31)
[2023-04-24] MEDS ORDERED: methIMAzole 5 MG TAB PO SCH (07:45)
[2023-04-24] MEDS ORDERED: IOHEXOL 350 MG/ML 100ML IJ ONE (07:50)
[2023-04-24] MEDS: cefTRIAXone 1GM/50ML D5W 50 ML IV SCH (08:53)
[2023-04-24 09:06] LABS: Triglycerides 69 mg/dL (< 150)
[2023-04-24 09:07] LABS: LDL Cholesterol 61 mg/dL (< 100)
[2023-04-24 09:08] LABS: Cholesterol 117 mg/dL (< 200); HDL Cholesterol 36 mg/dL (40-59)
[2023-04-24] MEDS ORDERED: FUROSEMIDE 20 MG/2 ML VIAL IV SCH (10:00)
[2023-04-24] MEDS: PHENYTOIN SODIUM 100 MG CAP PO SCH ×2 (10:19→21:57)
[2023-04-24] MEDS: DIGOXIN 0.125 MG TAB PO SCH (10:19)
[2023-04-24] MEDS: methylPREDNISolone SOD SUCC 40 MG/ML VL IV SCH ×2 (10:20→21:57)
[2023-04-24] MEDS: PANTOPRAZOLE 40 MG TAB PO SCH (10:20)
[2023-04-24] MEDS: ENOXAPARIN SOD 40 MG/0.4 ML SYRINGE SC SCH (10:20)
[2023-04-24] MEDS: AZITHROMYCIN 500MG/ 250ML 250 ML IV SCH (10:21)
[2023-04-24 10:29] LABS: Hepatitis B Surface Antigen Negative (Negative)
[2023-04-24 10:48] LABS: Hepatitis A Ab IgM Negative
[2023-04-24 10:50] LABS: Hepatitis B Core IgM Negative; Hepatitis C Antibody Negative (Negative)
[2023-04-24 11:48] LABS: T3 Total 0.8 ng/mL (0.60-1.81)
[2023-04-24 11:51] LABS: Free T4 (Free Thyroxine) 1.1 ng/dL (0.89-1.76)
[2023-04-24 13:13] LABS: INR 0.96 (0.9-1.15); Partial Thromboplastin Time 27.5 SEC (24.5-34.5); Prothrombin Time 10.3 sec (9.3-11.8)
[2023-04-24] MEDS ORDERED: NITROGLYCERIN 2% OINT 1GM PKG TD ONE (13:45)
[2023-04-24] MEDS: NOREPINEPHRINE 8 MG/250ML KIT 250 ML IV SCH ×2 (14:40→17:38)
[2023-04-24] MEDS: MIDODRINE HCL 10 MG TAB PO SCH (17:39)
[2023-04-24] MEDS: TEMAZEPAM 15 MG CAP PO SCH (21:57)
[2023-04-25] VITALS (9 sets, daily range): PULSE 83–114; RESP 12–20; O2SAT 90–100
[2023-04-25] MEDS: LEVALBUTEROL HCL 1.25 MG/3 ML NEB NEB SCH ×4 (00:16→17:30)
[2023-04-25] MEDS ORDERED: DIGOXIN (250MCG/ML) 2 ML AMPULE IV ONE (01:45)
[2023-04-25] MEDS: SODIUM CHLORIDE 0.9% 1,000 ML IV SCH (05:22)
[2023-04-25] MEDS: IPRATROPIUM BROM 0.5 MG/2.5ML INH SOL NEB SCH ×3 (05:56→17:30)
[2023-04-25 06:03] LABS: Alanine Aminotransferase 427 U/L (7-40); Albumin 3.2 g/dL (3.2-4.8); Alkaline Phosphatase 99 U/L (46-116); Anion Gap 7 (5-15); BUN/Creatinine Ratio 23.4 (10.0-20.0); Blood Urea Nitrogen 18 mg/dL (9-23); Calcium 9.7 mg/dL (8.7-10.4); Carbon Dioxide 22 mmol/L (20-30); Chloride 109 mmol/L (98-107); Glucose 160 mg/dL (74-106); Potassium 4.4 mmol/L (3.5-5.1); Sodium 138 mmol/L (136-145)
[2023-04-25 06:04] LABS: Aspartate Aminotransferase 465 U/L (13-40); Bilirubin, Total < 0.2 mg/dL (0.2-1.0); Total Protein 5.2 g/dL (5.7-8.2)
[2023-04-25] MEDS: MIDODRINE HCL 10 MG TAB PO SCH ×3 (06:43→18:25)
[2023-04-25 07:19] LABS: Basophils # (auto) 0 10 ^3/uL (0-0.2); Eosinophils # (auto) 0 10 ^3/uL (0-0.8); Hemoglobin 9.7 g/dL (12.2-16.2); White Blood Cell 21.2 10^3/uL (4.4-10.8)
[2023-04-25 07:22] LABS: Basophils % (auto) 0.1 % (0.0-2.0); Hematocrit 31.2 % (36.0-46.0); Lymphocytes # (auto) 1.1 10 ^3/uL (0.4-5.4); Lymphocytes % (auto) 5.3 % (10.0-50.0); Mean Corpuscular Hemoglobin 26.7 pg (28.0-32.0); Mean Corpuscular Hgb Conc. 31.1 g/dL (32.0-36.0); Monocytes # (auto) 0.7 10 ^3/uL (0-1.3); Monocytes % (auto) 3.5 % (0.0-12.0); Neutrophils # (auto) 19.3 10 ^3/uL (1.6-8.6); Neutrophils % (auto) 91.1 % (37.0-80.0); Red Blood Cells 3.63 10^6/uL (4.0-5.20); Red Cell Distribution Width 13.5 % (11.8-14.3)
[2023-04-25] MEDS: cefTRIAXone 1GM/50ML D5W 50 ML IV SCH (09:05)
[2023-04-25] MEDS: PANTOPRAZOLE 40 MG TAB PO SCH (10:08)
[2023-04-25] MEDS: DIGOXIN 0.125 MG TAB PO SCH (10:08)
[2023-04-25] MEDS: ENOXAPARIN SOD 40 MG/0.4 ML SYRINGE SC SCH (10:08)
[2023-04-25] MEDS: PHENYTOIN SODIUM 100 MG CAP PO SCH ×2 (10:08→22:33)
[2023-04-25] MEDS: AZITHROMYCIN 500MG/ 250ML 250 ML IV SCH (10:09)
[2023-04-25 10:23] LABS: % Iron Saturation 18.4 % (15-50)
[2023-04-25 10:34] LABS: Acetaminophen < 2.0 UG/ML (10.0-20.0)
[2023-04-25 10:41] LABS: Salicylate < 3.0 mg/dL (2.8-20.0)
[2023-04-25] MEDS: NOREPINEPHRINE 8 MG/250ML KIT 250 ML IV SCH (12:30)
[2023-04-25] MEDS: guaiFENesin 200 MG/10 ML UD PO PRN (13:07)
[2023-04-25] MEDS: HYDROCORTISONE SOD SUCC 100 MG/2ML INJ VIAL IV SCH ×2 (14:07→22:32)
[2023-04-25] MEDS: FERROUS SULFATE 325mg EC TAB PO SCH (18:25)
[2023-04-25] MEDS: TEMAZEPAM 15 MG CAP PO SCH (22:32)
[2023-04-26] VITALS (9 sets, daily range): BP systolic 87–91; BP diastolic 45–47; PULSE 67–106; RESP 16–27; TEMP 97.6–98.4; O2SAT 92–100
[2023-04-26] MEDS: LEVALBUTEROL HCL 1.25 MG/3 ML NEB NEB SCH ×4 (01:04→18:14)
[2023-04-26] MEDS: HYDROCORTISONE SOD SUCC 100 MG/2ML INJ VIAL IV SCH ×3 (06:29→21:37)
[2023-04-26] MEDS: MIDODRINE HCL 10 MG TAB PO SCH ×3 (06:30→17:08)
[2023-04-26] MEDS: IPRATROPIUM BROM 0.5 MG/2.5ML INH SOL NEB SCH ×3 (06:54→18:14)
[2023-04-26 08:35] LABS: Basophils # (auto) 0 10 ^3/uL (0-0.2); Eosinophils # (auto) 0 10 ^3/uL (0-0.8); Eosinophils % (auto) 0.1 % (0.0-7.0); Hematocrit 30.4 % (36.0-46.0); Monocytes # (auto) 0.7 10 ^3/uL (0-1.3); Red Cell Distribution Width 13.3 % (11.8-14.3)
[2023-04-26 08:37] LABS: Basophils % (auto) 0.3 % (0.0-2.0); Hemoglobin 9.8 g/dL (12.2-16.2); Lymphocytes % (auto) 9.3 % (10.0-50.0); Mean Corpuscular Hemoglobin 26.8 pg (28.0-32.0); Mean Corpuscular Hgb Conc. 32.3 g/dL (32.0-36.0); Neutrophils # (auto) 9.4 10 ^3/uL (1.6-8.6); Neutrophils % (auto) 84.3 % (37.0-80.0); Red Blood Cells 3.66 10^6/uL (4.0-5.20); White Blood Cell 11.2 10^3/uL (4.4-10.8)
[2023-04-26 08:53] LABS: Alanine Aminotransferase 248 U/L (7-40); Albumin 2.9 g/dL (3.2-4.8); Alkaline Phosphatase 81 U/L (46-116); Anion Gap 5 (5-15); Aspartate Aminotransferase 104 U/L (13-40); Blood Urea Nitrogen 16 mg/dL (9-23); Calcium 9.7 mg/dL (8.5-10.1); Carbon Dioxide 25 mmol/L (20-30); Chloride 111 mmol/L (98-107); Glucose 135 mg/dL (74-106); Potassium 4.3 mmol/L (3.5-5.1); Sodium 141 mmol/L (136-145)
[2023-04-26 08:54] LABS: Bilirubin, Total 0.2 mg/dL (0.2-1.0); Total Protein 4.8 g/dL (5.7-8.2)
[2023-04-26] MEDS: cefTRIAXone 1GM/50ML D5W 50 ML IV SCH (09:25)
[2023-04-26] MEDS: FERROUS SULFATE 325mg EC TAB PO SCH ×2 (09:27→17:09)
[2023-04-26] MEDS: DIGOXIN 0.125 MG TAB PO SCH (11:22)
[2023-04-26] MEDS: AZITHROMYCIN 250 MG TAB PO SCH (11:22)
[2023-04-26] MEDS: PHENYTOIN SODIUM 100 MG CAP PO SCH ×2 (11:22→21:37)
[2023-04-26] MEDS: ENOXAPARIN SOD 40 MG/0.4 ML SYRINGE SC SCH (11:23)
[2023-04-26] MEDS: PANTOPRAZOLE 40 MG TAB PO SCH (11:23)
[2023-04-26] MEDS: TEMAZEPAM 15 MG CAP PO SCH (21:37)
[2023-04-27] VITALS (11 sets, daily range): BP systolic 99–112; BP diastolic 56–66; PULSE 70–116; RESP 16–20; TEMP 97.6–98.2; O2SAT 99–100
[2023-04-27] MEDS: MIDODRINE HCL 10 MG TAB PO SCH ×2 (05:34→11:37)
[2023-04-27] MEDS: HYDROCORTISONE SOD SUCC 100 MG/2ML INJ VIAL IV SCH (05:34)
[2023-04-27] MEDS: LEVALBUTEROL HCL 1.25 MG/3 ML NEB NEB SCH ×2 (06:22)
[2023-04-27] MEDS: IPRATROPIUM BROM 0.5 MG/2.5ML INH SOL NEB SCH (06:22)
[2023-04-27 06:34] LABS: Calcium 9.6 mg/dL (8.7-10.4); Chloride 111 mmol/L (98-107); Potassium 4.2 mmol/L (3.5-5.1); Sodium 141 mmol/L (136-145)
[2023-04-27 06:36] LABS: Anion Gap 6 (5-15); Carbon Dioxide 24 mmol/L (20-30)
[2023-04-27 06:41] LABS: BUN/Creatinine Ratio 22.7 (10.0-20.0); Blood Urea Nitrogen 15 mg/dL (9-23); Glucose 132 mg/dL (74-106)
[2023-04-27 06:57] LABS: Hemoglobin 9.5 g/dL (12.2-16.2)
[2023-04-27 06:59] LABS: Hematocrit 29.5 % (36.0-46.0); Mean Corpuscular Hemoglobin 27.1 pg (28.0-32.0); Mean Corpuscular Hgb Conc. 32.4 g/dL (32.0-36.0); Mean Corpuscular Volume 83.6 fL (80.0-100.0); Red Blood Cells 3.52 10^6/uL (4.0-5.20); Red Cell Distribution Width 13.2 % (11.8-14.3); White Blood Cell 11.8 10^3/uL (4.4-10.8)
[2023-04-27 07:13] LABS: Basophils % (manual) 0 (0.0-2.0); Blast Cells 0; Eosinophils % (manual) 0 (0-7); Metamyelocytes % 0; Myelocytes % 0; Promyelocytes % 0; Reactive Lymphocytes 0
[2023-04-27] MEDS: cefTRIAXone 1GM/50ML D5W 50 ML IV SCH (08:21)
[2023-04-27] MEDS: guaiFENesin 200 MG/10 ML UD PO PRN (08:21)
[2023-04-27] MEDS: FERROUS SULFATE 325mg EC TAB PO SCH (08:22)
[2023-04-27 09:10] LABS: Band Neutrophils % (manual) 4; Lymphocytes % (manual) 7 (10.0-50.0); Monocytes % (manual) 4 (0-12); Platelet Estimate Increased
[2023-04-27] MEDS: AZITHROMYCIN 250 MG TAB PO SCH (09:12)
[2023-04-27] MEDS: PANTOPRAZOLE 40 MG TAB PO SCH (09:12)
[2023-04-27] MEDS: PHENYTOIN SODIUM 100 MG CAP PO SCH (09:12)
[2023-04-27] MEDS: DIGOXIN 0.125 MG TAB PO SCH (09:13)
== END 2023-04-27 16:08 | DRG 871 ==
LOC: ER 09:06 → EDUNIT# 09:06 → EDBD 09:06 → TELE 11:50 → TELE-EAST 04-26 16:13
PROVIDERS: ADMIT Internal Medicine; ATTEND Internal Medicine
DX: A41.9 Sepsis, unspecified organism (principal); G93.41 Metabolic encephalopathy; J96.01 Acute respiratory failure with hypoxia; R65.21 Severe sepsis with septic shock; J15.69 Pneumonia due to other Gram-negative bacteria; I50.43 Acute on chronic combined systolic (congestive) and diastolic (congestive) heart failure; J44.1 Chronic obstructive pulmonary disease with (acute) exacerbation; J44.0 Chronic obstructive pulmonary disease with (acute) lower respiratory infection; I48.20 Chronic atrial fibrillation, unspecified; E87.1 Hypo-osmolality and hyponatremia; N39.0 Urinary tract infection, site not specified; I11.0 Hypertensive heart disease with heart failure; Z20.822 Contact with and (suspected) exposure to COVID-19; F41.9 Anxiety disorder, unspecified; E03.9 Hypothyroidism, unspecified; R74.01 Elevation of levels of liver transaminase levels; G40.909 Epilepsy, unspecified, not intractable, without status epilepticus; E05.90 Thyrotoxicosis, unspecified without thyrotoxic crisis or storm; D64.9 Anemia, unspecified; Z90.710 Acquired absence of both cervix and uterus; Z90.49 Acquired absence of other specified parts of digestive tract; Z86.73 Personal history of transient ischemic attack (TIA), and cerebral infarction without residual deficits; Z87.891 Personal history of nicotine dependence; Z88.2 Allergy status to sulfonamides
CPT/HCPCS: 36415; 70450; 71045; 71275; 76705; 80048; 80053; 80061; 80074; 80162; 80185; 80329; 81001; 82140; 82306; 82533; 83036; 83540; 83550; 83605; 83735; 83880; 84439; 84443; 84480; 84484; 85007; 85025; 85027; 85379; 85610; 85730; 87040; 87086; 87426; 87804; 93005; 93970; 94640; 97163; 99291; G0378

== ENCOUNTER 2023-05-21 13:35 | Emergency (ER) | payer MEDICARE, MEDICAID ==
[~2023-05-21] VITALS: Ht 152.4 cm; Wt 45.3 kg
[~2023-05-21 13:35] MED LIST changes: +ATOR10TA52 PO; -HYDR-4833 PO
[2023-05-21 14:21] LABS: Basophils # (auto) 0 10 ^3/uL (0-0.2); Eosinophils # (auto) 0.1 10 ^3/uL (0-0.8); Eosinophils % (auto) 2.6 % (0.0-7.0); Lymphocytes # (auto) 1.7 10 ^3/uL (0.4-5.4); Lymphocytes % (auto) 33.1 % (10.0-50.0); Monocytes # (auto) 0.5 10 ^3/uL (0-1.3); Monocytes % (auto) 10.4 % (0.0-12.0); Neutrophils # (auto) 2.8 10 ^3/uL (1.6-8.6)
[2023-05-21 14:23] LABS: Basophils % (auto) 0.5 % (0.0-2.0); Hematocrit 43.2 % (36.0-46.0); Hemoglobin 13.2 g/dL (12.2-16.2); Mean Corpuscular Hemoglobin 26.4 pg (28.0-32.0); Mean Corpuscular Hgb Conc. 30.5 g/dL (32.0-36.0); Mean Corpuscular Volume 86.6 fL (80.0-100.0); Neutrophils % (auto) 53.4 % (37.0-80.0); Nucleated Red Blood Cells % 0.2 %; Red Blood Cells 4.99 10^6/uL (4.0-5.20); White Blood Cell 5.2 10^3/uL (4.4-10.8)
[2023-05-21 14:37] LABS: Alanine Aminotransferase 26 U/L (7-40); Albumin 3.8 g/dL (3.2-4.8); Alkaline Phosphatase 118 U/L (46-116); Anion Gap 4 (5-15); Aspartate Aminotransferase 29 U/L (13-40); BUN/Creatinine Ratio 15.5 (10.0-20.0); Bilirubin, Total 0.3 mg/dL (0.2-1.0); Blood Alcohol < 3.0 mg/dL (<10); Blood Urea Nitrogen 11 mg/dL (9-23); Calcium 10.8 mg/dL (8.5-10.1); Carbon Dioxide 28 mmol/L (20-30); Chloride 107 mmol/L (98-107); Glucose 109 mg/dL (74-106); Potassium 4.2 mmol/L (3.5-5.1); Sodium 139 mmol/L (136-145); Total Protein 5.9 g/dL (5.7-8.2)
[2023-05-21 15:11] LABS: Magnesium 1.7 mg/dL (1.6-2.6)
[2023-05-21 21:00] VITALS: PULSE 80; RESP 18; O2SAT 95
[2023-05-22 07:20] VITALS: PULSE 66; RESP 12; O2SAT 97
[2023-05-22 09:17] LABS: Urine Bacteria FEW /hpf (None Seen); Urine Blood 1+ /uL (Negative); Urine Clarity HAZY (Clear); Urine Color Yellow (Yellow); Urine Protein, UAD TRACE (Negative); Urine Specific Gravity 1.014 (1.001-1.035); Urine Urobilinogen Normal (Negative); Urine WBC 71 /hpf (0 - 5)
[2023-05-22] MEDS ORDERED: cefTRIAXone SOD 1,000 MG VL IM ONE (11:15)
[2023-05-22 17:19] VITALS: BP 128/67; PULSE 101; RESP 14; TEMP 98.3; O2SAT 96
== END 2023-05-22 17:15 | disposition home or self-care (01) ==
LOC: EDBD 13:35 → ER 13:35
DX: R41.82 Altered mental status, unspecified (principal); I11.0 Hypertensive heart disease with heart failure; I50.9 Heart failure, unspecified; J44.9 Chronic obstructive pulmonary disease, unspecified; M19.90 Unspecified osteoarthritis, unspecified site; F41.9 Anxiety disorder, unspecified; I48.91 Unspecified atrial fibrillation; Z86.2 Personal history of diseases of the blood and blood-forming organs and certain disorders involving the immune mechanism; Z86.73 Personal history of transient ischemic attack (TIA), and cerebral infarction without residual deficits; Z98.890 Other specified postprocedural states; Z87.891 Personal history of nicotine dependence; Z88.8 Allergy status to other drugs, medicaments and biological substances; Z79.899 Other long term (current) drug therapy
CPT/HCPCS: 36415; 70450; 80053; 80320; 81001; 82140; 83735; 84484; 85025; 93005; 96372; 99285; J0696

== ENCOUNTER 2023-05-25 20:06 | Inpatient (IN) | payer MEDICARE, MEDICAID ==
[~2023-05-25] VITALS: Ht 165.1 cm; Wt 58.0 kg
[2023-05-25 21:47] LABS: Basophils # (auto) 0.1 10 ^3/uL (0-0.2); Basophils % (auto) 1.1 % (0.0-2.0); Eosinophils # (auto) 0.1 10 ^3/uL (0-0.8); Hematocrit 44.8 % (36.0-46.0); Hemoglobin 13.7 g/dL (12.2-16.2); Lymphocytes # (auto) 1.6 10 ^3/uL (0.4-5.4); Lymphocytes % (auto) 20.6 % (10.0-50.0); Mean Corpuscular Hemoglobin 26.6 pg (28.0-32.0); Mean Corpuscular Hgb Conc. 30.5 g/dL (32.0-36.0); Monocytes # (auto) 0.7 10 ^3/uL (0-1.3); Monocytes % (auto) 9.1 % (0.0-12.0); Neutrophils # (auto) 5.4 10 ^3/uL (1.6-8.6); Neutrophils % (auto) 68.2 % (37.0-80.0); Nucleated Red Blood Cells % 0.2 %; Red Blood Cells 5.15 10^6/uL (4.0-5.20); Red Cell Distribution Width 17.3 % (11.8-14.3); White Blood Cell 7.9 10^3/uL (4.4-10.8)
[2023-05-25 21:59] LABS: Alanine Aminotransferase 18 U/L (7-40); Alkaline Phosphatase 116 U/L (46-116); Anion Gap 6 (5-15); Aspartate Aminotransferase 29 U/L (13-40); BUN/Creatinine Ratio 14.9 (10.0-20.0); Bilirubin, Total 0.2 mg/dL (0.2-1.0); Blood Urea Nitrogen 10 mg/dL (9-23); Calcium 10.7 mg/dL (8.7-10.4); Carbon Dioxide 27 mmol/L (20-30); Chloride 103 mmol/L (98-107); Glucose 114 mg/dL (74-106); Magnesium 1.7 mg/dL (1.6-2.6); Sodium 136 mmol/L (136-145); Total Protein 6.4 g/dL (5.7-8.2)
[2023-05-25 22:00] VITALS: PULSE 89; RESP 16; O2SAT 97
[2023-05-25 22:29] LABS: Digoxin (Lanoxin) 0.82 ng/mL (0.8-2)
[2023-05-25 22:35] LABS: Phenytoin (Dilantin) > 40.0 ug/mL (10-20)
[2023-05-25 22:36] LABS: Lactic Acid w/Reflex 2.6 mmol/L (0.4-2.0)
[2023-05-25] MEDS: SODIUM CHLORIDE 0.9% 1,000 ML IVB ONE (23:15)
[2023-05-26] MEDS: cefTRIAXone 1GM/50ML D5W 50 ML IV ONE (00:03)
[2023-05-26] MEDS ORDERED: CEPH250C PO (05:25)
[2023-05-26] MEDS ORDERED: PATIENTS OWN MEDICATION (Zinc Sulfate 220 MG) PO SCH (10:00)
[2023-05-26] MEDS ORDERED: ENOXAPARIN SOD 40 MG/0.4 ML SYRINGE SC SCH (10:00)
[2023-05-26] MEDS ORDERED: ONDANSETRON HCL 4 MG/2 ML VIAL IV PRN (10:00)
[2023-05-26] MEDS ORDERED: DOCUSATE SOD 100 MG CAP PO PRN (10:00)
[2023-05-26] MEDS ORDERED: MIDODRINE HCL 5 MG PO SCH (10:00)
[2023-05-26 11:07] VITALS: PULSE 96; RESP 16; O2SAT 100
[2023-05-26] MEDS: PARoxetine 20 MG TAB PO SCH (11:51)
[2023-05-26] MEDS: APIXABAN 2.5 MG TAB PO SCH (11:51)
[2023-05-26] MEDS: ASPirin-EC 81 mg tab PO SCH (11:52)
[2023-05-26] MEDS: PANTOPRAZOLE 40 MG TAB PO SCH (11:52)
[2023-05-26] MEDS: ASCORBIC ACID 1,000 MG TAB PO SCH (11:52)
[2023-05-26] MEDS: DIGOXIN 0.125 MG TAB PO SCH (11:52)
[2023-05-26] MEDS: METOPROLOL TARTRATE 25 MG TAB PO SCH (11:54)
[2023-05-26] MEDS: Ensure HIGH Protein Chocolate 8oz Bottle PO SCH (12:00)
[2023-05-26] MEDS: SODIUM CHLORIDE 0.9% 1,000 ML IV SCH (12:04)
[2023-05-26 15:05] VITALS: BP 93/48; PULSE 56; PULSE 64; RESP 16; RESP 18; TEMP 98.2; O2SAT 96
[2023-05-26 17:00] VITALS: BP 105/52; PULSE 78; RESP 18; TEMP 97.4; O2SAT 100
[2023-05-26 20:00] VITALS: PULSE 59; RESP 18; O2SAT 99
[2023-05-26 22:00] VITALS: BP 94/55; PULSE 80; RESP 18; TEMP 97.3; O2SAT 99
[2023-05-26] MEDS ORDERED: PATIENTS OWN MEDICATION (Atorvastatin Calcium 1 TAB) PO SCH (22:00)
[2023-05-26] MEDS: ATORVASTATIN 20 MG TAB PO SCH (22:29)
[2023-05-26] MEDS: MIDODRINE HCL 10 MG TAB PO SCH (22:30)
[2023-05-26] MEDS: MELATONIN 5 MG TAB PO PRN (23:55)
[2023-05-27] VITALS (7 sets, daily range): BP systolic 94–113; BP diastolic 49–90; PULSE 59–100; RESP 16–18; TEMP 97.7–98.2; O2SAT 91–100
[2023-05-27 06:27] LABS: Basophils # (auto) 0 10 ^3/uL (0-0.2); Basophils % (auto) 0.3 % (0.0-2.0); Hemoglobin 12.7 g/dL (12.2-16.2); Monocytes # (auto) 0.6 10 ^3/uL (0-1.3); Neutrophils # (auto) 2.8 10 ^3/uL (1.6-8.6)
[2023-05-27 06:31] LABS: Eosinophils # (auto) 0.1 10 ^3/uL (0-0.8); Eosinophils % (auto) 2.4 % (0.0-7.0); Hematocrit 40.8 % (36.0-46.0); Lymphocytes # (auto) 2.7 10 ^3/uL (0.4-5.4); Lymphocytes % (auto) 42.2 % (10.0-50.0); Mean Corpuscular Hemoglobin 27.2 pg (28.0-32.0); Mean Corpuscular Hgb Conc. 31.1 g/dL (32.0-36.0); Mean Corpuscular Volume 87.6 fL (80.0-100.0); Monocytes % (auto) 10.1 % (0.0-12.0); Red Blood Cells 4.66 10^6/uL (4.0-5.20); Red Cell Distribution Width 17.2 % (11.8-14.3); White Blood Cell 6.3 10^3/uL (4.4-10.8)
[2023-05-27 06:44] LABS: Alanine Aminotransferase 12 U/L (7-40); Albumin 3.1 g/dL (3.2-4.8); Alkaline Phosphatase 84 U/L (46-116); Anion Gap 4 (5-15); Aspartate Aminotransferase 20 U/L (13-40); BUN/Creatinine Ratio 17.5 (10.0-20.0); Blood Urea Nitrogen 10 mg/dL (9-23); Calcium 9.8 mg/dL (8.7-10.4); Carbon Dioxide 28 mmol/L (20-30); Chloride 109 mmol/L (98-107); Glucose 75 mg/dL (74-106); Potassium 4.4 mmol/L (3.5-5.1); Sodium 141 mmol/L (136-145)
[2023-05-27 06:45] LABS: Bilirubin, Total 0.2 mg/dL (0.2-1.0)
[2023-05-27] MEDS: ZINC SULFATE 220mg CAP or TAB PO SCH (09:32)
[2023-05-27] MEDS: cefTRIAXone 1GM/50ML D5W 50 ML IV ONE (15:14)
[2023-05-27 15:21] LABS: Urine Bacteria FEW /hpf (None Seen); Urine Blood Negative /uL (Negative); Urine Budding Yeast OCCASIONAL /hpf (None Seen); Urine Clarity HAZY (Clear); Urine Color Yellow (Yellow); Urine Protein, UAD Negative (Negative); Urine Specific Gravity 1.009 (1.001-1.035); Urine Urobilinogen Normal (Negative); Urine WBC 68 /hpf (0 - 5); Urine pH 6.5 (5.0-8.0)
[2023-05-28] VITALS (9 sets, daily range): BP systolic 93–116; BP diastolic 53–62; PULSE 59–105; RESP 16–20; TEMP 98.4–98.7; O2SAT 97–99
[2023-05-28] MEDS: cefTRIAXone 1GM/50ML D5W 50 ML IV SCH (08:27)
[2023-05-29 04:56] VITALS: BP 103/72; PULSE 85; RESP 20; TEMP 98; O2SAT 93
[2023-05-29 08:00] VITALS: PULSE 103
[2023-05-29 09:00] VITALS: BP 131/69; PULSE 94; RESP 18; TEMP 98.1; O2SAT 94
[2023-05-29 11:50] LABS: Basophils # (auto) 0 10 ^3/uL (0-0.2); Basophils % (auto) 0.1 % (0.0-2.0); Eosinophils # (auto) 0.1 10 ^3/uL (0-0.8); Eosinophils % (auto) 1.7 % (0.0-7.0); Hemoglobin 11.3 g/dL (12.2-16.2); Lymphocytes # (auto) 1.5 10 ^3/uL (0.4-5.4); Lymphocytes % (auto) 31.3 % (10.0-50.0); Mean Corpuscular Hgb Conc. 31.5 g/dL (32.0-36.0); Mean Corpuscular Volume 85.8 fL (80.0-100.0); Monocytes # (auto) 0.5 10 ^3/uL (0-1.3); Monocytes % (auto) 9.6 % (0.0-12.0); Neutrophils # (auto) 2.7 10 ^3/uL (1.6-8.6); Neutrophils % (auto) 57.3 % (37.0-80.0); Nucleated Red Blood Cells % 0.2 %; Red Blood Cells 4.19 10^6/uL (4.0-5.20); Red Cell Distribution Width 17.1 % (11.8-14.3); White Blood Cell 4.7 10^3/uL (4.4-10.8)
[2023-05-29 12:10] LABS: Alanine Aminotransferase 12 U/L (7-40); Albumin 2.8 g/dL (3.2-4.8); Alkaline Phosphatase 73 U/L (46-116); Anion Gap 5 (5-15); Aspartate Aminotransferase 20 U/L (13-40); BUN/Creatinine Ratio 31.7 (10.0-20.0); Bilirubin, Total < 0.2 mg/dL (0.2-1.0); Blood Urea Nitrogen 13 mg/dL (9-23); Carbon Dioxide 25 mmol/L (20-30); Chloride 112 mmol/L (98-107); Glucose 98 mg/dL (74-106); Lipase 48 U/L (12-53); Magnesium 1.5 mg/dL (1.6-2.6); Potassium 4.2 mmol/L (3.5-5.1); Sodium 142 mmol/L (136-145); Total Protein 4.4 g/dL (5.7-8.2)
[2023-05-29 12:12] LABS: INR 1.05 (0.9-1.15); Partial Thromboplastin Time 25.6 SEC (24.5-34.5)
[2023-05-29 12:38] LABS: Triglycerides 76 mg/dL (< 150)
[2023-05-29 12:39] LABS: LDL Cholesterol 77 mg/dL (< 100)
[2023-05-29 12:40] LABS: Cholesterol 135 mg/dL (< 200); HDL Cholesterol 45 mg/dL (40-59)
[2023-05-29 13:00] VITALS: BP 101/62; PULSE 69; RESP 18; TEMP 98.3; O2SAT 93
[2023-05-29] MEDS ORDERED: IBUPROFEN 400 MG TAB PO PRN (16:45)
[2023-05-29] MEDS: MEROPENEM 1GM IVPB 50 ML IV SCH (19:04)
[2023-05-29 22:05] VITALS: BP 113/93; PULSE 94; RESP 18; O2SAT 97
[2023-05-30] MEDS: MEROPENEM 1GM IVPB 50 ML IV SCH (02:54)
[2023-05-30 05:00] VITALS: BP 107/54; PULSE 85; RESP 16; O2SAT 94
[2023-05-30 06:04] LABS: Basophils # (auto) 0 10 ^3/uL (0-0.2); Basophils % (auto) 0.1 % (0.0-2.0); Eosinophils # (auto) 0.1 10 ^3/uL (0-0.8); Eosinophils % (auto) 1.1 % (0.0-7.0); Hematocrit 36.2 % (36.0-46.0); Lymphocytes # (auto) 1.6 10 ^3/uL (0.4-5.4); Lymphocytes % (auto) 21.4 % (10.0-50.0); Mean Corpuscular Hemoglobin 26.6 pg (28.0-32.0); Mean Corpuscular Hgb Conc. 30.6 g/dL (32.0-36.0); Mean Corpuscular Volume 87.1 fL (80.0-100.0); Monocytes # (auto) 0.6 10 ^3/uL (0-1.3); Monocytes % (auto) 8.6 % (0.0-12.0); Neutrophils # (auto) 5.1 10 ^3/uL (1.6-8.6); Neutrophils % (auto) 68.8 % (37.0-80.0); Red Blood Cells 4.15 10^6/uL (4.0-5.20); Red Cell Distribution Width 17.5 % (11.8-14.3); White Blood Cell 7.4 10^3/uL (4.4-10.8)
[2023-05-30 06:22] LABS: Alanine Aminotransferase 11 U/L (7-40); Albumin 2.7 g/dL (3.2-4.8); Alkaline Phosphatase 69 U/L (46-116); Anion Gap 6 (5-15); Aspartate Aminotransferase 24 U/L (13-40); BUN/Creatinine Ratio 31.3 (10.0-20.0); Bilirubin, Total 0.2 mg/dL (0.2-1.0); Blood Urea Nitrogen 15 mg/dL (9-23); Calcium 9.3 mg/dL (8.5-10.1); Carbon Dioxide 24 mmol/L (20-30); Chloride 108 mmol/L (98-107); Glucose 78 mg/dL (74-106); Sodium 138 mmol/L (136-145); Total Protein 4.1 g/dL (5.7-8.2)
[2023-05-30 07:48] LABS: % Iron Saturation 9.6 % (15-50)
[2023-05-30 09:00] VITALS: BP 97/53; PULSE 88; RESP 18; TEMP 98.3; O2SAT 96
[2023-05-30] MEDS: CYANOCOBALAMIN 500 MCG TAB PO SCH (10:40)
[2023-05-30] MEDS: CHOLECALCIFEROL (VITD3) 1,000UNIT=25mCg TAB PO SCH (10:40)
[2023-05-30 12:52] VITALS: BP 103/52; PULSE 119; RESP 16; TEMP 98; O2SAT 96
[2023-05-30 16:00] VITALS: BP 97/53; PULSE 88; TEMP 36.7
== END 2023-05-30 19:22 | DRG 871 ==
LOC: ER 20:06 → EDBD 20:06 → TELE 05-26 09:51 → TELE-EAST 05-26 14:40 → EAST 05-29 15:25
PROVIDERS: ADMIT Internal Medicine; ATTEND Internal Medicine
PROC: 05HC33Z Insertion of Infusion Device into Left Basilic Vein, Percutaneous Approach (ICD-10-PCS; principal; 2023-05-30)
PROC: B54NZZA Ultrasonography of Left Upper Extremity Veins, Guidance (ICD-10-PCS; 2023-05-30)
DX: A41.9 Sepsis, unspecified organism (principal); G92.8 Other toxic encephalopathy; I48.20 Chronic atrial fibrillation, unspecified; I50.32 Chronic diastolic (congestive) heart failure; N39.0 Urinary tract infection, site not specified; Z16.12 Extended spectrum beta lactamase (ESBL) resistance; R65.20 Severe sepsis without septic shock; D64.9 Anemia, unspecified; E03.9 Hypothyroidism, unspecified; E05.90 Thyrotoxicosis, unspecified without thyrotoxic crisis or storm; E86.0 Dehydration; I11.0 Hypertensive heart disease with heart failure; I95.89 Other hypotension; J44.9 Chronic obstructive pulmonary disease, unspecified; R62.7 Adult failure to thrive; T42.0X5A Adverse effect of hydantoin derivatives, initial encounter; B96.20 Unspecified Escherichia coli [E. coli] as the cause of diseases classified elsewhere; F41.9 Anxiety disorder, unspecified; F03.90 Unspecified dementia, unspecified severity, without behavioral disturbance, psychotic disturbance, mood disturbance, and anxiety; I48.0 Paroxysmal atrial fibrillation; Z88.2 Allergy status to sulfonamides; Z86.73 Personal history of transient ischemic attack (TIA), and cerebral infarction without residual deficits; Z90.49 Acquired absence of other specified parts of digestive tract; Z90.710 Acquired absence of both cervix and uterus; Z68.21 Body mass index [BMI] 21.0-21.9, adult
CPT/HCPCS: 36415; 71045; 80053; 80061; 80162; 80185; 81001; 82140; 82306; 82607; 83036; 83540; 83550; 83605; 83690; 83735; 84443; 85025; 85610; 85730; 87040; 87081; 87086; 87088; 87186; 93005; 97110; 97116; 97163; 97530; G0378; J2185

== ENCOUNTER 2023-07-06 17:17 | Inpatient (IN) | payer MEDICARE, MEDICAID ==
[~2023-07-06] VITALS: Ht 157.5 cm; Wt 52.0 kg
[~2023-07-06 17:17] MED LIST changes: -ALBUAER3 IN; -ALPR0.5T10 PO; -APIX2.5T PO; -ASCO10003 PO; -CEFU500T43 PO; -MIDO5TAB4 PO; -MOLN200C PO; -PAXIL PO; -PHEN100C PO; -TEMA30CA PO; -ZINC220T6 PO
[2023-07-06 19:23] LABS: Basophils # (auto) 0 10 ^3/uL (0-0.2); Eosinophils # (auto) 0 10 ^3/uL (0-0.8); Lymphocytes # (auto) 0.9 10 ^3/uL (0.4-5.4); Neutrophils # (auto) 17.7 10 ^3/uL (1.6-8.6); Red Blood Cells 4.06 10^6/uL (4.0-5.20)
[2023-07-06 19:26] LABS: Hemoglobin 10.1 g/dL (12.2-16.2); Lymphocytes % (auto) 4.4 % (10.0-50.0); Mean Corpuscular Hemoglobin 24.9 pg (28.0-32.0); Mean Corpuscular Hgb Conc. 30.6 g/dL (32.0-36.0); Mean Corpuscular Volume 81.4 fL (80.0-100.0); Monocytes # (auto) 1.7 10 ^3/uL (0-1.3); Monocytes % (auto) 8.2 % (0.0-12.0); Neutrophils % (auto) 87.4 % (37.0-80.0); Nucleated Red Blood Cells % 0.1 %; Red Cell Distribution Width 16.3 % (11.8-14.3); White Blood Cell 20.2 10^3/uL (4.4-10.8)
[2023-07-06 19:38] LABS: Alanine Aminotransferase 10 U/L (7-40); Albumin 4.3 g/dL (3.2-4.8); Alkaline Phosphatase 84 U/L (46-116); Anion Gap 9 (5-15); Aspartate Aminotransferase 15 U/L (13-40); Blood Urea Nitrogen 9 mg/dL (9-23); Calcium 11.1 mg/dL (8.7-10.4); Carbon Dioxide 20 mmol/L (20-30); Chloride 103 mmol/L (98-107); Glucose 125 mg/dL (74-106); Magnesium 1.9 mg/dL (1.6-2.6); Sodium 132 mmol/L (136-145)
[2023-07-06 19:39] LABS: Bilirubin, Total 0.9 mg/dL (0.2-1.0); Total Protein 6.7 g/dL (5.7-8.2)
[2023-07-06 19:45] VITALS: PULSE 133; RESP 27; O2SAT 97
[2023-07-06 20:07] LABS: Lactic Acid w/Reflex 2.1 mmol/L (0.4-2.0)
[2023-07-06] MEDS: SODIUM CHLORIDE 0.9% 1,000 ML IV ONE (20:11)
[2023-07-06] MEDS ORDERED: MORPHINE SULFATE INJ 2 MG/ml SYRG IV PRN (21:00)
[2023-07-06] MEDS ORDERED: NITROGLYCERIN 0.4 MG SL TAB SL PRN (21:00)
[2023-07-06] MEDS ORDERED: ONDANSETRON HCL 4 MG/2 ML VIAL IV PRN (21:00)
[2023-07-06 22:24] LABS: Urine Bacteria FEW /hpf (None Seen); Urine Blood TRACE /uL (Negative); Urine Clarity HAZY (Clear); Urine Color Colorless (Yellow); Urine Protein, UAD TRACE (Negative); Urine Specific Gravity 1.014 (1.001-1.035); Urine Urobilinogen Normal (Negative); Urine WBC 109 /hpf (0 - 5); Urine WBC Clumps PRESENT /hpf (None Seen); Urine pH 6.5 (5.0-8.0)
[2023-07-06] MEDS: DIGOXIN 0.125 MG TAB PO SCH (23:08)
[2023-07-06] MEDS: ATORVASTATIN 20 MG TAB PO SCH (23:41)
[2023-07-06] MEDS: PIPERACILLIN-TAZOB 3.375GM 100 ML IV ONE (23:41)
[2023-07-06] MEDS: PHENYTOIN SODIUM 100 MG CAP PO SCH (23:41)
[2023-07-06] MEDS: DIGOXIN (250MCG/ML) 2 ML AMPULE IV ONE (23:43)
[2023-07-07] MEDS: APIXABAN 2.5 MG TAB PO SCH (00:05)
[2023-07-07] MEDS: cefTRIAXone 1GM/50ML D5W 50 ML IV SCH (00:25)
[2023-07-07] MEDS: DIGOXIN (250MCG/ML) 2 ML AMPULE IV ONE (00:26)
[2023-07-07 04:55] LABS: Basophils # (auto) 0 10 ^3/uL (0-0.2); Basophils % (auto) 0.1 % (0.0-2.0); Eosinophils # (auto) 0 10 ^3/uL (0-0.8); Hemoglobin 8.2 g/dL (12.2-16.2); Monocytes # (auto) 1.8 10 ^3/uL (0-1.3); Neutrophils # (auto) 13.8 10 ^3/uL (1.6-8.6); White Blood Cell 17.2 10^3/uL (4.4-10.8)
[2023-07-07 04:59] LABS: Hematocrit 26.6 % (36.0-46.0); Lymphocytes # (auto) 1.6 10 ^3/uL (0.4-5.4); Lymphocytes % (auto) 9.2 % (10.0-50.0); Mean Corpuscular Hemoglobin 25.1 pg (28.0-32.0); Mean Corpuscular Hgb Conc. 30.9 g/dL (32.0-36.0); Mean Corpuscular Volume 81.1 fL (80.0-100.0); Monocytes % (auto) 10.7 % (0.0-12.0); Red Blood Cells 3.28 10^6/uL (4.0-5.20); Red Cell Distribution Width 16.4 % (11.8-14.3)
[2023-07-07 05:13] LABS: Alanine Aminotransferase < 9 U/L (7-40); Albumin 3.4 g/dL (3.2-4.8); Alkaline Phosphatase 59 U/L (46-116); Anion Gap 8 (5-15); Aspartate Aminotransferase 12 U/L (13-40); BUN/Creatinine Ratio 12.5 (10.0-20.0); Bilirubin, Total 1.3 mg/dL (0.2-1.0); Blood Urea Nitrogen 8 mg/dL (9-23); Calcium 9.9 mg/dL (8.7-10.4); Carbon Dioxide 19 mmol/L (20-30); Chloride 106 mmol/L (98-107); Glucose 104 mg/dL (74-106); Potassium 3.9 mmol/L (3.5-5.1); Sodium 133 mmol/L (136-145); Total Protein 5.3 g/dL (5.7-8.2)
[2023-07-07 07:30] VITALS: PULSE 107; RESP 15; O2SAT 96
[2023-07-07] MEDS: ACETAMINOPHEN 325 MG TAB PO PRN (09:07)
[2023-07-07] MEDS: METOPROLOL SUCCINATE XL 50 MG TAB PO SCH (09:09)
[2023-07-07] MEDS: SODIUM CHLORIDE 0.9% 500 ML IV ONE ×2 (11:15→13:15)
[2023-07-07] MEDS: MEROPENEM 1GM IVPB 50 ML IV SCH (12:55)
[2023-07-07] MEDS ORDERED: SODIUM CHLORIDE 0.9% 1,000 ML IV SCH (14:30)
[2023-07-07] MEDS: NOREPINEPHRINE 8 MG/250ML KIT 250 ML IV SCH (15:00)
[2023-07-07 19:30] VITALS: PULSE 82; RESP 14; O2SAT 99
[2023-07-07] MEDS: SODIUM CHLORIDE 0.9% 250 ML IV ONE (19:49)
[2023-07-07] MEDS: DOCUSATE SOD 100 MG CAP PO ONE (19:50)
[2023-07-08] MEDS: TEMAZEPAM 15 MG CAP PO PRN (01:53)
[2023-07-08 02:15] VITALS: RESP 22; O2SAT 99
[2023-07-08] MEDS: NITROGLYCERIN 2% OINT 1GM PKG TD ONE (06:29)
[2023-07-08 07:04] LABS: Basophils # (auto) 0 10 ^3/uL (0-0.2); Basophils % (auto) 0.1 % (0.0-2.0); Eosinophils # (auto) 0.1 10 ^3/uL (0-0.8); Eosinophils % (auto) 0.4 % (0.0-7.0); Hemoglobin 8.6 g/dL (12.2-16.2); Lymphocytes # (auto) 2.1 10 ^3/uL (0.4-5.4); Red Blood Cells 3.52 10^6/uL (4.0-5.20)
[2023-07-08 07:05] LABS: Lymphocytes % (auto) 11.5 % (10.0-50.0); Mean Corpuscular Hemoglobin 24.5 pg (28.0-32.0); Mean Corpuscular Hgb Conc. 30.8 g/dL (32.0-36.0); Mean Corpuscular Volume 79.5 fL (80.0-100.0); Monocytes # (auto) 2.1 10 ^3/uL (0-1.3); Monocytes % (auto) 11.5 % (0.0-12.0); Neutrophils # (auto) 14.2 10 ^3/uL (1.6-8.6); Neutrophils % (auto) 76.5 % (37.0-80.0); Red Cell Distribution Width 16.5 % (11.8-14.3); White Blood Cell 18.6 10^3/uL (4.4-10.8)
[2023-07-08 07:20] VITALS: PULSE 93; RESP 26; O2SAT 98
[2023-07-08 07:33] LABS: Alanine Aminotransferase 19 U/L (7-40); Alkaline Phosphatase 61 U/L (46-116); Anion Gap 5 (5-15); Aspartate Aminotransferase 24 U/L (13-40); BUN/Creatinine Ratio 16.1 (10.0-20.0); Blood Urea Nitrogen 9 mg/dL (9-23); Carbon Dioxide 22 mmol/L (20-30); Chloride 115 mmol/L (98-107); Glucose 97 mg/dL (74-106); Potassium 3.8 mmol/L (3.5-5.1); Sodium 142 mmol/L (136-145)
[2023-07-08 07:34] LABS: Albumin 3.3 g/dL (3.2-4.8); Bilirubin, Total 0.5 mg/dL (0.2-1.0)
[2023-07-08] MEDS ORDERED: DOCUSATE SOD 100 MG CAP PO PRN (08:00)
[2023-07-08 09:00] LABS: Magnesium 1.8 mg/dL (1.6-2.6)
[2023-07-08 09:11] LABS: INR 1.13 (0.9-1.15); Prothrombin Time 11.8 sec (9.3-11.8)
[2023-07-08 09:29] LABS: Iron < 5 ug/dL (50-170)
[2023-07-08 09:32] LABS: % Iron Saturation 1.9 % (15-50); Total Iron Binding Capacity 262 ug/dL (250-425)
[2023-07-08] MEDS: IRON SUCROSE COMPLEX 100 ML IV SCH (12:59)
[2023-07-08] MEDS: SODIUM CHLORIDE 0.9% 1,000 ML IV SCH (14:30)
[2023-07-08] MEDS: SODIUM CHLORIDE 0.9% 1,250 ML IV ONE (14:40)
[2023-07-08 19:30] VITALS: PULSE 130; RESP 18; O2SAT 97
[2023-07-08 23:20] VITALS: BP 97/41; PULSE 101; RESP 20; TEMP 98.8; TEMP 98.9; O2SAT 95
[2023-07-09] VITALS (9 sets, daily range): BP systolic 92–137; BP diastolic 51–76; PULSE 94–120; RESP 16–20; TEMP 97–100.1; O2SAT 96–98
[2023-07-09] MEDS: dilTIAZem 25 MG/5 ML VIAL IV ONE (01:40)
[2023-07-09 05:11] LABS: Alanine Aminotransferase 14 U/L (7-40); Alkaline Phosphatase 60 U/L (46-116); Anion Gap 5 (5-15); Aspartate Aminotransferase 15 U/L (13-40); BUN/Creatinine Ratio 21.4 (10.0-20.0); Bilirubin, Total 0.3 mg/dL (0.2-1.0); Blood Urea Nitrogen 12 mg/dL (9-23); Calcium 9.9 mg/dL (8.7-10.4); Carbon Dioxide 23 mmol/L (20-30); Chloride 115 mmol/L (98-107); Glucose 90 mg/dL (74-106); Magnesium 1.7 mg/dL (1.6-2.6); Potassium 4.5 mmol/L (3.5-5.1); Sodium 143 mmol/L (136-145); Total Protein 4.6 g/dL (5.7-8.2)
[2023-07-09 05:12] LABS: Digoxin (Lanoxin) 0.95 ng/mL (0.8-2)
[2023-07-09 05:20] LABS: Basophils # (auto) 0 10 ^3/uL (0-0.2); Eosinophils # (auto) 0.1 10 ^3/uL (0-0.8); Eosinophils % (auto) 1.3 % (0.0-7.0); Hemoglobin 8.6 g/dL (12.2-16.2); Nucleated Red Blood Cells % 0.1 %
[2023-07-09 05:23] LABS: Basophils % (auto) 0.4 % (0.0-2.0); Hematocrit 26.7 % (36.0-46.0); Lymphocytes # (auto) 1.6 10 ^3/uL (0.4-5.4); Lymphocytes % (auto) 20.7 % (10.0-50.0); Mean Corpuscular Hemoglobin 25.5 pg (28.0-32.0); Mean Corpuscular Hgb Conc. 32.2 g/dL (32.0-36.0); Mean Corpuscular Volume 79.1 fL (80.0-100.0); Monocytes # (auto) 1.1 10 ^3/uL (0-1.3); Monocytes % (auto) 14.3 % (0.0-12.0); Neutrophils # (auto) 4.8 10 ^3/uL (1.6-8.6); Neutrophils % (auto) 63.3 % (37.0-80.0); Red Blood Cells 3.38 10^6/uL (4.0-5.20); Red Cell Distribution Width 16.3 % (11.8-14.3); White Blood Cell 7.5 10^3/uL (4.4-10.8)
[2023-07-09] MEDS: METOPROLOL TARTRATE 25 MG TAB PO SCH (11:55)
[2023-07-09] MEDS: MAGNESIUM SULFATE 1GM/100ML 100 ML IV SCH (11:55)
[2023-07-10] VITALS (9 sets, daily range): BP systolic 90–141; BP diastolic 53–71; PULSE 72–104; RESP 16–18; TEMP 36.6; O2SAT 92–100
[2023-07-10 05:25] LABS: Chloride 111 mmol/L (98-107); Potassium 4.5 mmol/L (3.5-5.1); Sodium 138 mmol/L (136-145)
[2023-07-10 05:26] LABS: Anion Gap 6 (5-15); Calcium 9.7 mg/dL (8.7-10.4); Carbon Dioxide 21 mmol/L (20-30)
[2023-07-10 05:31] LABS: BUN/Creatinine Ratio 16.7 (10.0-20.0); Blood Urea Nitrogen 8 mg/dL (9-23); Glucose 89 mg/dL (74-106)
[2023-07-10 05:37] LABS: Hemoglobin 8.6 g/dL (12.2-16.2); Mean Corpuscular Hemoglobin 25.4 pg (28.0-32.0); Mean Corpuscular Hgb Conc. 28.7 g/dL (32.0-36.0); Mean Corpuscular Volume 88.5 fL (80.0-100.0); Red Blood Cells 3.39 10^6/uL (4.0-5.20); Red Cell Distribution Width 17.8 % (11.8-14.3); White Blood Cell 8.6 10^3/uL (4.4-10.8)
[2023-07-10 05:39] LABS: Band Neutrophils % (manual) 0; Basophils % (manual) 0 (0.0-2.0); Blast Cells 0; Metamyelocytes % 0; Promyelocytes % 0; Reactive Lymphocytes 0
[2023-07-10 07:49] LABS: Eosinophils % (manual) 1 (0-7); Lymphocytes % (manual) 36 (10.0-50.0); Monocytes % (manual) 9 (0-12); Myelocytes % 1; Platelet Estimate Adequate
[2023-07-10] MEDS: ERTAPENEM SOD INJ 1 GM in SODIUM CHL 0.9% 50 ML IV ONE (13:34)
[2023-07-10] MEDS: METOPROLOL TARTRATE 25 MG TAB PO SCH (22:00)
[2023-07-11] VITALS (8 sets, daily range): BP systolic 100–133; BP diastolic 48–86; PULSE 75–114; RESP 16–20; TEMP 36.6; O2SAT 92–97
[2023-07-11 01:06] LABS: Free Thyroxine Index 2.4 (1.2-4.9); Thyroxine (T4) 7.5 ug/dL (4.5-12.0)
[2023-07-11] MEDS: ERTAPENEM SOD INJ 1 GM in SODIUM CHL 0.9% 50 ML IV ONE (14:04)
== END 2023-07-11 18:59 | disposition home health service (06) | DRG 871 ==
LOC: ER 17:17 → TELE 21:04 → TELE-CENTR 07-08 22:38
PROVIDERS: ADMIT Internal Medicine Pulmonary Disease; ATTEND Internal Medicine Pulmonary Disease
DX: A41.51 Sepsis due to Escherichia coli [E. coli] (principal); G93.41 Metabolic encephalopathy; I50.33 Acute on chronic diastolic (congestive) heart failure; R65.21 Severe sepsis with septic shock; J96.01 Acute respiratory failure with hypoxia; N39.0 Urinary tract infection, site not specified; J98.11 Atelectasis; R57.9 Shock, unspecified; D68.69 Other thrombophilia; Z16.12 Extended spectrum beta lactamase (ESBL) resistance; I48.20 Chronic atrial fibrillation, unspecified; I48.0 Paroxysmal atrial fibrillation; J44.9 Chronic obstructive pulmonary disease, unspecified; I11.0 Hypertensive heart disease with heart failure; D64.9 Anemia, unspecified; E07.9 Disorder of thyroid, unspecified; G40.909 Epilepsy, unspecified, not intractable, without status epilepticus; F41.9 Anxiety disorder, unspecified; Z88.2 Allergy status to sulfonamides; Z90.710 Acquired absence of both cervix and uterus; Z86.73 Personal history of transient ischemic attack (TIA), and cerebral infarction without residual deficits; Z90.49 Acquired absence of other specified parts of digestive tract
CPT/HCPCS: 36415; 70450; 71045; 74176; 80048; 80053; 80061; 80162; 80185; 81001; 82728; 83540; 83550; 83605; 83735; 83880; 84443; 84484; 85007; 85025; 85027; 85610; 87040; 87081; 87086; 87088; 87186; 93005; G0378; J1335; J1756; J2185; J2543

== ENCOUNTER 2023-08-12 19:21 | Inpatient (IN) | payer MEDICARE, MEDICAID ==
[~2023-08-12] VITALS: Ht 165.1 cm; Wt 53.3 kg
[2023-08-12] MEDS: SODIUM CHLORIDE 0.9% 500 ML IV ONE (19:45)
[2023-08-12] MEDS ORDERED: VANCOMYCIN PER PHARMACY 0 MG IV SCH (20:00)
[2023-08-12] MEDS: PIPERACILLIN-TAZOB 3.375GM 100 ML IV ONE (20:00)
[2023-08-12] MEDS ORDERED: SODIUM CHLORIDE 0.9% 1,700 ML IV ONE (20:00)
[2023-08-12 20:08] LABS: Basophils # (auto) 0 10 ^3/uL (0-0.2); Basophils % (auto) 0.1 % (0.0-2.0); Eosinophils # (auto) 0 10 ^3/uL (0-0.8); Hemoglobin 10.7 g/dL (12.2-16.2)
[2023-08-12 20:10] LABS: Hematocrit 34.5 % (36.0-46.0); Lymphocytes # (auto) 1.4 10 ^3/uL (0.4-5.4); Lymphocytes % (auto) 8.6 % (10.0-50.0); Mean Corpuscular Hemoglobin 24.3 pg (28.0-32.0); Mean Corpuscular Hgb Conc. 30.9 g/dL (32.0-36.0); Mean Corpuscular Volume 78.7 fL (80.0-100.0); Monocytes # (auto) 1.2 10 ^3/uL (0-1.3); Monocytes % (auto) 7.8 % (0.0-12.0); Neutrophils # (auto) 13.3 10 ^3/uL (1.6-8.6); Neutrophils % (auto) 83.5 % (37.0-80.0); Red Blood Cells 4.39 10^6/uL (4.0-5.20); Red Cell Distribution Width 17.3 % (11.8-14.3)
[2023-08-12 20:11] LABS: Chloride 104 mmol/L (98-107); Sodium 132 mmol/L (136-145)
[2023-08-12 20:12] LABS: Anion Gap 6 (5-15); Calcium 11.2 mg/dL (8.7-10.4); Carbon Dioxide 22 mmol/L (20-30)
[2023-08-12 20:17] LABS: Blood Urea Nitrogen 18 mg/dL (9-23); Glucose 103 mg/dL (74-106)
[2023-08-12] MEDS: ACETAMINOPHEN 325 MG TAB PO ONE (20:42)
[2023-08-12] MEDS: dilTIAZem 25 MG/5 ML VIAL IV ONE (21:38)
[2023-08-12] MEDS: VANCOMYCIN 1GM/200ML 200 ML IV ONE (22:30)
[2023-08-12 22:53] LABS: Urine Bacteria FEW /hpf (None Seen); Urine Blood TRACE /uL (Negative); Urine Clarity Turbid (Clear); Urine Color Light-Yellow (Yellow); Urine Protein, UAD Negative (Negative); Urine Urobilinogen Normal (Negative); Urine WBC 44 /hpf (0 - 5); Urine pH 6.5 (5.0-9.0)
[2023-08-12 23:00] VITALS: PULSE 135; RESP 16; O2SAT 98
[2023-08-12] MEDS ORDERED: IPRATROPIUM BROM 0.5 MG/2.5ML INH SOL NEB PRN (23:45)
[2023-08-12] MEDS ORDERED: ONDANSETRON HCL 4 MG/2 ML VIAL IV PRN (23:45)
[2023-08-12] MEDS ORDERED: DOCUSATE SOD 100 MG CAP PO PRN (23:45)
[2023-08-12] MEDS ORDERED: HYDROcodone-ACET 5/325MG TAB PO PRN (23:45)
[2023-08-12] MEDS ORDERED: NITROGLYCERIN 0.4 MG SL TAB SL PRN (23:45)
[2023-08-12] MEDS ORDERED: ALBUTEROL SULF 2.5 MG/0.5ML(0.5%) NEB SOLN NEB PRN (23:45)
[2023-08-12] MEDS ORDERED: MORPHINE SULFATE INJ 2 MG/ml SYRG IV PRN (23:45)
[2023-08-12] MEDS ORDERED: DEXTROSE (50%) 50ML SYRG IV PRN (23:45)
[2023-08-12] MEDS: SODIUM CHLORIDE 0.9% 1,000 ML IV SCH (23:57)
[2023-08-13 00:06] VITALS: BP 86/39; PULSE 135; RESP 16; TEMP 98.7; O2SAT 98
[2023-08-13 01:34] VITALS: O2SAT 96
[2023-08-13 05:42] LABS: Basophils # (auto) 0 10 ^3/uL (0-0.2); Basophils % (auto) 0.1 % (0.0-2.0); Eosinophils # (auto) 0 10 ^3/uL (0-0.8); Eosinophils % (auto) 0.1 % (0.0-7.0); Monocytes # (auto) 1.5 10 ^3/uL (0-1.3)
[2023-08-13 05:44] LABS: Hemoglobin 9.8 g/dL (12.2-16.2); Lymphocytes # (auto) 1.6 10 ^3/uL (0.4-5.4); Lymphocytes % (auto) 10.1 % (10.0-50.0); Mean Corpuscular Hemoglobin 24.5 pg (28.0-32.0); Mean Corpuscular Hgb Conc. 30.8 g/dL (32.0-36.0); Mean Corpuscular Volume 79.5 fL (80.0-100.0); Monocytes % (auto) 9.2 % (0.0-12.0); Neutrophils # (auto) 12.9 10 ^3/uL (1.6-8.6); Neutrophils % (auto) 80.5 % (37.0-80.0); Nucleated Red Blood Cells % 0.1 %; Red Blood Cells 4.02 10^6/uL (4.0-5.20); Red Cell Distribution Width 17.5 % (11.8-14.3)
[2023-08-13 05:59] LABS: Albumin 3.7 g/dL (3.2-4.8); Alkaline Phosphatase 55 U/L (46-116); Anion Gap 11 (5-15); Aspartate Aminotransferase 14 U/L (13-40); BUN/Creatinine Ratio 14.3 (10.0-20.0); Bilirubin, Total 1.7 mg/dL (0.2-1.0); Blood Urea Nitrogen 11 mg/dL (9-23); Calcium 10.8 mg/dL (8.5-10.1); Carbon Dioxide 18 mmol/L (20-30); Chloride 110 mmol/L (98-107); Glucose 93 mg/dL (74-106); Potassium 3.7 mmol/L (3.5-5.1); Sodium 139 mmol/L (136-145); Total Protein 5.4 g/dL (5.7-8.2)
[2023-08-13 06:02] LABS: Alanine Aminotransferase < 9 U/L (7-40)
[2023-08-13] MEDS: ACCU-CHEK COMFORT CURVE STRIP VI SCH (06:29)
[2023-08-13] MEDS: InsuLIN REG 1unit/0.01ml Soln (100units/ml) SC SCH (06:33)
[2023-08-13 06:50] VITALS: O2SAT 96
[2023-08-13] MEDS: dilTIAZem 125mg/125ml BAG KIT 125 ML IV SCH (08:46)
[2023-08-13 08:56] VITALS: PULSE 120; RESP 20
[2023-08-13] MEDS: cefTRIAXone 1GM/50ML D5W 50 ML IV SCH (09:31)
[2023-08-13] MEDS: CARVEDILOL 3.125 MG TAB PO SCH (10:00)
[2023-08-13] MEDS: PHENYTOIN SODIUM 100 MG CAP PO SCH ×2 (10:00→21:53)
[2023-08-13] MEDS: PANTOPRAZOLE 40 MG/10 ML VIAL INJ IV SCH (10:00)
[2023-08-13] MEDS ORDERED: VANCOMYCIN 750mg/150ml 150 ML IV SCH (10:00)
[2023-08-13] MEDS: ASPirin 81 mg TAB PO SCH (10:00)
[2023-08-13] MEDS: SODIUM CHLORIDE 0.9% 1,000 ML IV SCH (11:45)
[2023-08-13] MEDS: SODIUM CHLORIDE 0.9% 500 ML IV ONE (11:45)
[2023-08-13] MEDS: AMIODARONE BOLUS KIT 100 ML IV ONE (12:02)
[2023-08-13] MEDS: AMIODARONE 450mg/250ml AE 250 ML IV SCH (12:03)
[2023-08-13 18:15] VITALS: O2SAT 98
[2023-08-13 19:40] VITALS: PULSE 107; RESP 17; O2SAT 100
[2023-08-13 19:41] LABS: INR 1.15 (0.9-1.15); Partial Thromboplastin Time 29.2 SEC (24.5-34.5)
[2023-08-13] MEDS: ERTAPENEM SOD INJ 1 GM in SODIUM CHL 0.9% 50 ML IV ONE (20:12)
[2023-08-13] MEDS: ACETAMINOPHEN 325 MG TAB PO PRN (21:50)
[2023-08-13] MEDS: TEMAZEPAM 15 MG CAP PO SCH (21:51)
[2023-08-13] MEDS: ATORVASTATIN 20 MG TAB PO SCH (21:51)
[2023-08-13] MEDS: ENOXAPARIN SOD 60 MG/0.6 ML SYRINGE SC SCH (21:53)
[2023-08-13] MEDS ORDERED: ATORVASTATIN 20 MG TAB PO SCH (22:00)
[2023-08-13] MEDS: AMIODARONE 450mg/250ml AE 250 ML IV ONE (23:44)
[2023-08-14] MEDS: AMIODARONE 450mg/250ml AE 250 ML IV SCH (00:04)
[2023-08-14] MEDS ORDERED: AMIODARONE 450mg/250ml AE 250 ML IV SCH (06:00)
[2023-08-14 06:21] VITALS: O2SAT 98
[2023-08-14 07:35] VITALS: PULSE 96; RESP 22; O2SAT 97
[2023-08-14] MEDS: ERTAPENEM SOD INJ 1 GM in SODIUM CHL 0.9% 50 ML IV SCH (11:14)
[2023-08-14] MEDS: DIGOXIN 0.125 MG TAB PO SCH (11:22)
[2023-08-14] MEDS: PANTOPRAZOLE 40 MG TAB PO SCH (11:22)
[2023-08-14] MEDS: SODIUM CHLORIDE 0.9% 1,000 ML IV SCH (12:48)
[2023-08-14 20:44] VITALS: PULSE 96; RESP 18; O2SAT 100
[2023-08-14] MEDS: APIXABAN 2.5 MG TAB PO SCH (21:29)
[2023-08-14] MEDS: AMIODARONE HCL 200 MG TAB PO SCH (21:29)
[2023-08-15 00:39] VITALS: O2SAT 97
[2023-08-15 04:38] LABS: Basophils # (auto) 0 10 ^3/uL (0-0.2); Basophils % (auto) 0.2 % (0.0-2.0); Eosinophils # (auto) 0.1 10 ^3/uL (0-0.8); Eosinophils % (auto) 0.9 % (0.0-7.0); Hemoglobin 9.9 g/dL (12.2-16.2); Lymphocytes # (auto) 1.6 10 ^3/uL (0.4-5.4); Lymphocytes % (auto) 16.9 % (10.0-50.0); Mean Corpuscular Hemoglobin 24.9 pg (28.0-32.0); Mean Corpuscular Hgb Conc. 30.9 g/dL (32.0-36.0); Mean Corpuscular Volume 80.8 fL (80.0-100.0); Monocytes # (auto) 0.7 10 ^3/uL (0-1.3); Monocytes % (auto) 7.7 % (0.0-12.0); Neutrophils # (auto) 7.2 10 ^3/uL (1.6-8.6); Neutrophils % (auto) 74.3 % (37.0-80.0); Red Blood Cells 3.96 10^6/uL (4.0-5.20); Red Cell Distribution Width 17.9 % (11.8-14.3); White Blood Cell 9.7 10^3/uL (4.4-10.8)
[2023-08-15 04:52] LABS: Anion Gap 7 (5-15); Carbon Dioxide 18 mmol/L (20-30); Chloride 113 mmol/L (98-107); Potassium 3.8 mmol/L (3.5-5.1); Sodium 138 mmol/L (136-145)
[2023-08-15 04:53] LABS: Calcium 10.6 mg/dL (8.7-10.4)
[2023-08-15 04:58] LABS: BUN/Creatinine Ratio 15.5 (10.0-20.0); Blood Urea Nitrogen 9 mg/dL (9-23); Glucose 79 mg/dL (74-106)
[2023-08-15 12:32] LABS: Basophils # (auto) 0 10 ^3/uL (0-0.2); Eosinophils # (auto) 0.1 10 ^3/uL (0-0.8); Eosinophils % (auto) 0.7 % (0.0-7.0); Lymphocytes # (auto) 1.3 10 ^3/uL (0.4-5.4); Monocytes # (auto) 0.8 10 ^3/uL (0-1.3); Nucleated Red Blood Cells % 0.1 %; Red Cell Distribution Width 17.7 % (11.8-14.3)
[2023-08-15 12:33] LABS: Chloride 111 mmol/L (98-107); Potassium 4.1 mmol/L (3.5-5.1); Sodium 137 mmol/L (136-145)
[2023-08-15 12:34] LABS: Anion Gap 6 (5-15); Calcium 10.3 mg/dL (8.5-10.1); Carbon Dioxide 20 mmol/L (20-30)
[2023-08-15 12:35] LABS: Basophils % (auto) 0.2 % (0.0-2.0); Hematocrit 34.2 % (36.0-46.0); Hemoglobin 10.7 g/dL (12.2-16.2); Lymphocytes % (auto) 16.3 % (10.0-50.0); Mean Corpuscular Hemoglobin 25.1 pg (28.0-32.0); Mean Corpuscular Hgb Conc. 31.3 g/dL (32.0-36.0); Mean Corpuscular Volume 80.3 fL (80.0-100.0); Monocytes % (auto) 10.4 % (0.0-12.0); Neutrophils # (auto) 5.6 10 ^3/uL (1.6-8.6); Neutrophils % (auto) 72.4 % (37.0-80.0); Red Blood Cells 4.26 10^6/uL (4.0-5.20); White Blood Cell 7.8 10^3/uL (4.4-10.8)
[2023-08-15 12:39] LABS: BUN/Creatinine Ratio 12.1 (10.0-20.0); Blood Urea Nitrogen 7 mg/dL (9-23); Glucose 93 mg/dL (74-106)
[2023-08-15 17:00] VITALS: BP 141/73; PULSE 107; RESP 16; TEMP 98.6; O2SAT 91
[2023-08-15 18:16] VITALS: BP 141/73; PULSE 107; RESP 16; TEMP 98.6; O2SAT 91
[2023-08-15 20:00] VITALS: PULSE 108; RESP 18
[2023-08-15 21:00] VITALS: BP 121/64; PULSE 57; RESP 17; TEMP 98.8; O2SAT 93
[2023-08-15] MEDS: TEMAZEPAM 15 MG CAP PO PRN (22:25)
[2023-08-16] VITALS (8 sets, daily range): BP systolic 104–149; BP diastolic 45–79; PULSE 69–114; RESP 16–20; TEMP 97.7–98.2; O2SAT 92–99
[2023-08-17] VITALS (7 sets, daily range): BP systolic 118–146; BP diastolic 67–95; PULSE 82–136; RESP 19–20; TEMP 98–98.9; O2SAT 94–98
[2023-08-17 06:56] LABS: Digoxin (Lanoxin) 0.75 ng/mL (0.8-2)
[2023-08-18 04:53] VITALS: BP 121/84; PULSE 104; RESP 20; TEMP 97.9; O2SAT 97
[2023-08-18 08:00] VITALS: O2SAT 98
[2023-08-18 08:49] VITALS: BP 144/82; PULSE 102; RESP 16; TEMP 98.3; O2SAT 97
[2023-08-18 08:59] VITALS: BP 165/99; PULSE 102; RESP 16; TEMP 98.3; O2SAT 97
[2023-08-18 09:25] VITALS: BP 144/82
== END 2023-08-18 09:57 | disposition home or self-care (01) | DRG 872 ==
LOC: EDBD 19:21 → ER 19:21 → TELE 23:42 → TELE-CENTR 08-15 16:48
PROVIDERS: ADMIT Nurse Practitioner Family; ATTEND Nurse Practitioner Acute Care
PROC: 05HB33Z Insertion of Infusion Device into Right Basilic Vein, Percutaneous Approach (ICD-10-PCS; principal; 2023-08-16)
PROC: B54MZZA Ultrasonography of Right Upper Extremity Veins, Guidance (ICD-10-PCS; 2023-08-16)
DX: A41.51 Sepsis due to Escherichia coli [E. coli] (principal); R65.20 Severe sepsis without septic shock; B96.20 Unspecified Escherichia coli [E. coli] as the cause of diseases classified elsewhere; D63.8 Anemia in other chronic diseases classified elsewhere; I11.0 Hypertensive heart disease with heart failure; I48.91 Unspecified atrial fibrillation; I50.9 Heart failure, unspecified; J44.9 Chronic obstructive pulmonary disease, unspecified; F41.9 Anxiety disorder, unspecified; G40.909 Epilepsy, unspecified, not intractable, without status epilepticus; N30.90 Cystitis, unspecified without hematuria; Z86.73 Personal history of transient ischemic attack (TIA), and cerebral infarction without residual deficits; Z79.1 Long term (current) use of non-steroidal anti-inflammatories (NSAID); Z87.440 Personal history of urinary (tract) infections; Z90.710 Acquired absence of both cervix and uterus; Z88.2 Allergy status to sulfonamides; Z79.899 Other long term (current) drug therapy; Z79.82 Long term (current) use of aspirin; Z78.9 Other specified health status
CPT/HCPCS: 36415; 71045; 80048; 80053; 80162; 80185; 81001; 82962; 83605; 83880; 84443; 84484; 85025; 85610; 85730; 87040; 87086; 87088; 87186; 93005; 93306; 99291; C9113; G0378; J1335; J1815; J2543